=== PATIENT | male | born 1985 | race Caucasian/White ===

== ENCOUNTER → 2022-09-28 07:23 | Outpatient (BNVA) | payer OTHER, SELFPAY | PROVIDERS: PCP Pediatrics; Visit Provider Psychiatry & Neurology Neurology ==

== ENCOUNTER → 2022-10-26 14:48 | Outpatient (REF) | payer OTHER, SELFPAY | LOC: HO.SL 14:48 | PROVIDERS: PCP Pediatrics; Visit Provider Psychiatry & Neurology Neurology | DX: G47.10 Hypersomnia, unspecified (principal); G47.00 Insomnia, unspecified; R06.83 Snoring | CPT/HCPCS: 95806 ==

== ENCOUNTER 2022-11-23 08:43 | Outpatient (REF) | payer OTHER, SELFPAY ==
--- NOTE | 2022-11-23 08:45 | EMG_ITS ---
Bilateral tibial and peroneal motor studies were performed. Bilateral superficial peroneal and sural sensory studies were performed. Tibial H reflexes were obtained and paraspinal muscles were tested with a needle. 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 MD HAYDEE Fuller/MODL / [id number]
== END 2022-11-23 08:44 | disposition home or self-care (01) ==
LOC: HO.NEURO 08:43
PROVIDERS: PCP Pediatrics; Visit Provider Psychiatry & Neurology Neurology
DX: R53.1 Weakness (principal); R20.2 Paresthesia of skin
CPT/HCPCS: 95886; 95911

== ENCOUNTER 2022-12-11 16:10 | Outpatient (REF) | payer OTHER, SELFPAY ==
[2022-12-11 16:36] LABS: MANUAL DIFF FLAG NO
[2022-12-11 16:40] LABS: Basophils Absolute Auto 0.1 X10*3/uL (0.0-0.2); Basophils Percent Auto 0.5 % (0-2); Eosinophils Absolute Auto 0.1 X10*3/uL (0.0-0.4); Eosinophils Percent Auto 0.9 % (0-4); Hemoglobin 15.3 g/dl (14.0-18.0); Imm Gran Abs Auto 0.09 X10*3/uL (0.00-0.03); Imm Gran Pct Auto 0.9 % (0.0-0.4); Lymphocytes Absolute Auto 2.7 X10*3/uL (1.2-4.9); Lymphocytes Percent Auto 27.5 % (20-40); Mean Corpuscular HGB Conc 34.8 g/dl (31.0-36.0); Mean Corpuscular Hemoglobin 30.5 pg (27.0-33.0); Mean Corpuscular Volume 87.8 fL (80.0-98.0); Mean Platelet Volume 10.6 fL (9.4-12.4); Monocytes Absolute Auto 0.7 X10*3/uL (0.1-1.2); Monocytes Percent Auto 7.7 % (2-11); Neutrophils Percent Auto 62.5 % (45-73); Platelet Count 241 X10*3/uL (160-400); Red Blood Count 5.01 X10*6/uL (4.60-5.80); Red Cell Distribution Width 12.4 % (11.0-16.0); White Blood Count 9.6 X10*3/uL (4.8-10.8)
[2022-12-11 17:02] LABS: Alanine Aminotransferase 53 U/L (0-40); Albumin Level 5.2 g/dL (3.5-5.0); Alkaline Phosphatase 60 U/L (39-117); Anion Gap 14 (12-20); Aspartate Amino Transferase 24 U/L (5-37); Bilirubin Total 0.6 mg/dL (0.0-1.0); Blood Urea Nitrogen 8 mg/dL (9-16); Calcium 10.2 mg/dL (8.4-10.2); Carbon Dioxide 26 mmol/L (22-29); Chloride 101 mmol/L (96-108); Estimated Glomerular Filt Rate > 60; Glucose Random 87 mg/dL (60-115); Sodium 137 mmol/L (135-145)
[2022-12-11 17:15] LABS: Syphilis Screen Nonreactive (Nonreactive)
[2022-12-11 17:16] LABS: TSH reflex Free T4 2.77 uIU/mL (0.32-4.0)
[2022-12-11 17:26] LABS: Erythrocyte Sedimentation Rate 2 MM/HR (0-15)
[2022-12-11 17:30] LABS: Folate 12.9 ng/mL (> or = 4.0); Vitamin B12 473 pg/mL (200-900)
[2022-12-13 09:53] LABS: Lyme Abs Screen <0.90 index
[2022-12-14 18:44] LABS: Homocysteine 10.5 umol/L (<11.4)
[2022-12-16 17:18] LABS: Methylmalonic Acid 99 nmol/L (87-318)
[2022-12-18 12:53] LABS: Vitamin B6 99.2 ng/mL (2.1-21.7)
== END 2022-12-11 16:11 | disposition home or self-care (01) ==
LOC: HO.LAB 16:10
PROVIDERS: PCP Pediatrics; Visit Provider Psychiatry & Neurology Neurology
DX: G62.9 Polyneuropathy, unspecified (principal)
CPT/HCPCS: 80053; 82570; 82607; 82746; 83090; 83921; 84156; 84165; 84166; 84207; 84443; 85025; 85652; 86617; 86618; 86780

== ENCOUNTER 2022-12-26 09:29 | Day surgery (SDC) | payer OTHER, MEDICAID, SELFPAY ==
--- NOTE | ~2022-12-26 | FL_ITS ---
EXAMINATION: XR LUMBAR PUNCTURE CLINICAL INFORMATION: Polyneuropathy COMPARISON: None TECHNIQUE: Under fluoroscopic guidance to the skin was prepped and draped in usual fashion 1% Xylocaine was used for local anesthetic. A 25-gauge needle was then placed via a posterior approach into the Thecal sac at the level of the L3-L4 disc space. FINDINGS: A total of 8 mL of clear CSF was drained and sent for analysis. FLUOROSCOPY TIME: 1 minute FL/FL guided lumbar puncture LP IMPRESSION: Successful lumbar puncture at the L3-L4 level with 8 mL of clear CSF drained and sent for analysis. The Patient tolerated procedure well.
[2022-12-26 10:01] VITALS: BMI 33.9
[2022-12-26 10:23] LABS: MANUAL DIFF FLAG NO
[2022-12-26 10:25] LABS: Basophils Absolute Auto 0.1 X10*3/uL (0.0-0.2); Basophils Percent Auto 0.6 % (0-2); Eosinophils Absolute Auto 0.1 X10*3/uL (0.0-0.4); Eosinophils Percent Auto 1.2 % (0-4); Hematocrit 42.1 % (42.0-52.0); Hemoglobin 14.6 g/dl (14.0-18.0); Imm Gran Abs Auto 0.07 X10*3/uL (0.00-0.03); Imm Gran Pct Auto 0.8 % (0.0-0.4); Lymphocytes Absolute Auto 2.7 X10*3/uL (1.2-4.9); Lymphocytes Percent Auto 31.8 % (20-40); Mean Corpuscular HGB Conc 34.7 g/dl (31.0-36.0); Mean Corpuscular Hemoglobin 30.8 pg (27.0-33.0); Mean Corpuscular Volume 88.8 fL (80.0-98.0); Mean Platelet Volume 11.2 fL (9.4-12.4); Monocytes Absolute Auto 0.6 X10*3/uL (0.1-1.2); Monocytes Percent Auto 7.3 % (2-11); Neutrophils Percent Auto 58.3 % (45-73); Platelet Count 231 X10*3/uL (160-400); Red Blood Count 4.74 X10*6/uL (4.60-5.80); Red Cell Distribution Width 12.1 % (11.0-16.0); White Blood Count 8.5 X10*3/uL (4.8-10.8)
[2022-12-26 10:33] LABS: Anion Gap 15 (12-20); Carbon Dioxide 22 mmol/L (22-29); Chloride 107 mmol/L (96-108); Potassium 4.4 mmol/L (3.3-5.1); Sodium 140 mmol/L (135-145)
[2022-12-26 10:42] LABS: Prothrombin Time 11.9 SEC (11.1-13.3)
[2022-12-26 10:45] LABS: Partial Thromboplastin Time 35.7 SEC (26.0-36.4)
[2022-12-26 13:39] VITALS: BP 117/78; PULSE 64; RESP 16; TEMP 36.8; O2SAT 98
[2022-12-26 14:19] VITALS: BP 118/77; PULSE 63; RESP 16; O2SAT 98
[2022-12-26 14:28] LABS: CSF Tube # 1
[2022-12-26 14:31] LABS: CSF Appearance Hazy
[2022-12-26 14:43] LABS: Glucose CSF 59 mg/dL
[2022-12-26 14:48] VITALS: BP 114/68; PULSE 66; RESP 16; O2SAT 99
[2022-12-26 15:26] VITALS: BP 117/71; PULSE 67; RESP 16
[2022-12-26 15:50] VITALS: BP 115/77; PULSE 68; RESP 16; O2SAT 98
[2022-12-26 16:08] VITALS: BP 114/81; PULSE 74; RESP 16; TEMP 36.5; O2SAT 95
[2022-12-26 16:08] LABS: Appearance CSF CLEAR; CSF Tube # 4; Color CSF COLORLESS
[2022-12-26 16:19] LABS: Lymphocytes CSF 3 %
[2022-12-26 16:21] LABS: White Blood Cell CSF 2 MM*3
[2022-12-26 16:22] LABS: Red Blood Cell CSF 19 MM*3
[2023-01-18 11:58] LABS: Total Protein, CSF 87 (H)
== END 2022-12-26 16:19 | disposition home or self-care (01) ==
PROVIDERS: Radiology Diagnostic Radiology; PCP Pediatrics; Visit Provider Psychiatry & Neurology Neurology
PROC: 009U3ZZ Drainage of Spinal Canal, Percutaneous Approach (ICD-10-PCS; CPT 62270; principal; 2022-12-26 11:00)
DX: G62.9 Polyneuropathy, unspecified (principal); M79.606 Pain in leg, unspecified; M25.579 Pain in unspecified ankle and joints of unspecified foot; M62.81 Muscle weakness (generalized); R20.2 Paresthesia of skin; R26.2 Difficulty in walking, not elsewhere classified; I10 Essential (primary) hypertension; R06.83 Snoring; G47.10 Hypersomnia, unspecified; G47.00 Insomnia, unspecified; Z79.899 Other long term (current) drug therapy; Z88.8 Allergy status to other drugs, medicaments and biological substances
CPT/HCPCS: 36415; 62328; 80051; 82945; 84157; 84166; 85025; 85610; 85730; 89051

== ENCOUNTER → 2022-12-26 10:53 | Outpatient (BNV) | payer OTHER, SELFPAY | PROVIDERS: PCP Pediatrics; Visit Provider Radiology Vascular & Interventional Radiology | DX: G62.9 Polyneuropathy, unspecified (principal) | CPT/HCPCS: 62328 ==

== ENCOUNTER 2023-01-08 07:57 | Outpatient (AMB) | payer OTHER, SELFPAY ==
--- NOTE | 2023-01-08 08:05 | MHC.OFFVIS ---
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 His symptoms started about 5 months ago in [place] , followed by Fingers , then weakness, he has trouble climbing stairs, running jumping. Prior to all this he had pain after work - in his feet and legs. No back or neck pain. He denies any preceding Gi or respiratory infection. The tingling is present throughout the day fluctuates in intensity, more in the morning. He saw his PCP and found to have high BP started on amlodipine. He had right facial weakness, difficulty whistling , spitting etc, The medication was switched to lisinopril and his face weakness resolved. He lost 40 lbs intentionally to help with his HTN control [facility] Medical History (Updated 01/08/23 @ 08:49 by Tamiko Tavarez MD) Chronic inflammatory demyelinating polyneuropathy History of rectal abscess Hypersomnia Insomnia Neuropathy Snoring Tingling in extremities Weakness Family History Maternal Grandfather Heart disease Father Afib Mother Thyroid disease Family/Other Cancer Social History Alcohol intake: never Patient Tobacco Use Status: Never used Tobacco Physical Exam Vital Signs: Last Vital Signs Pulse 81 01/08/23 08:08 BP 120/78 01/08/23 08:08 Pulse Ox 98 01/08/23 08:08 Oxygen Delivery Method Room Air 01/08/23 08:08 Const Orientation/consciousness: patient oriented x3 Eyes Pupils: Equal, round and reactive pupils present Neuro General: patient oriented x3, gait normal, tone normal, moves all extremities and no focal motor deficits Cranial nerves: Yes Facial sensation intact/muscles of mastication intact, Yes Equal, round and reactive pupils present, Yes Bilaterally intact EOM present, Yes Nystagmus not present, Yes Normal facial strength present, Yes Midline tongue present and Yes Symmetric palate elevation present Cognition (Neuro): normal cognition Gait exam (Neuro): Normal gait present Motor exam (neuro): 5/5 motor strength present throughout and Normal motor muscle tone present throughout Deep tendon reflexes (DTR's): Right triceps reflex intensity grade: 1+, Left triceps reflex intensity grade: 1+, Rt Biceps (C5, C6): 1+, Left biceps reflex intensity grade: 1+, Right brachioradialis reflex intensity grade: 0, Left brachioradialis reflex intensity grade: 0, Right patellar reflex intensity grade: 1+, Left patellar reflex intensity grade: 1+, Right ankle reflex intensity grade: 0 and Left ankle reflex intensity grade: 0 Coordination: [id number] test normal, [id number] test normal and does not sway with eyes open Assessment & Plan Assessment & Plan (1) Chronic inflammatory demyelinating polyneuropathy: Comment: distal and proximal weakness, sensory symptoms, EMG-sensorimotor demeylinating , axonal polyneuropathy CSF- albuminocytologic dissociation Code(s): G61.81 - Chronic inflammatory demyelinating polyneuritis Plan I will start him on IVIG - loading dose of 2g/kg over 3 days( 116kg X2 = 232 gms) and maintenance dose of 1gm/kg q 3 weeks Side effects discussed and he will be scheduled at [facility] for IVIG I will follow up in 4 weeks . Orders: Orders Vitamin B12 and Folate 12/11/22 G62.9 - Polyneuropathy, unspecified Comprehensive Met. Panel 12/11/22 G62.9 - Polyneuropathy, unspecified TSH reflex Free T4 12/11/22 G62.9 - Polyneuropathy, unspecified Vitamin B6 12/11/22 G62.9 - Polyneuropathy, unspecified Complete Blood Count Auto Diff 12/11/22 G62.9 - Polyneuropathy, unspecified Erythrocyte Sedimentation Rate 12/11/22 G62.9 - Polyneuropathy, unspecified Homocysteine 12/11/22 G62.9 - Polyneuropathy, unspecified Methylmalonic Acid 12/11/22 G62.9 - Polyneuropathy, unspecified Other Ref Test - Misc 12/11/22 G62.9 - Polyneuropathy, unspecified Lyme IgG/IgM w/reflex to WB 12/11/22 G62.9 - Polyneuropathy, unspecified Syphilis Screen 12/11/22 G62.9 - Polyneuropathy, unspecified FL guided lumbar puncture LP 12/26/22 G62.9 - Polyneuropathy, unspecified CSF Cell Count w Diff 12/11/22 G62.9 - Polyneuropathy, unspecified CSF Glucose 12/11/22 G62.9 - Polyneuropathy, unspecified CSF Total Protein 12/11/22 G62.9 - Polyneuropathy, unspecified Protein Electrophoresis, CSF 12/11/22 G62.9 - Polyneuropathy, unspecified AMB Hemoglobin A1c 12/11/22 G62.9 - Polyneuropathy, unspecified, Z13.9 - Encounter for screening, unspecified Coding Level of Care Code Est Pt Level 4 (94544) Diagnoses Chronic inflammatory demyelinating polyneuropathy G61.81
[2023-01-08 08:08] VITALS: BP 120/78; PULSE 81; O2SAT 98
== END 2023-01-08 08:40 | disposition home or self-care (01) ==
PROVIDERS: Visit Provider Psychiatry & Neurology Neurology
DX: G61.81 Chronic inflammatory demyelinating polyneuritis (principal)
CPT/HCPCS: 99214

== ENCOUNTER → 2023-01-08 07:57 | Outpatient (BNVA) | payer OTHER, SELFPAY | PROVIDERS: Visit Provider Psychiatry & Neurology Neurology | DX: R06.83 Snoring (principal); G47.10 Hypersomnia, unspecified; G47.00 Insomnia, unspecified; R53.1 Weakness; R20.2 Paresthesia of skin; G62.9 Polyneuropathy, unspecified ==

== ENCOUNTER 2023-01-31 13:24 | Outpatient (REF) | payer OTHER, SELFPAY | END 2023-01-31 13:25 | disposition home or self-care (01) | LOC: HO.MDS 13:24 | PROVIDERS: Visit Provider Psychiatry & Neurology Neurology | DX: G61.81 Chronic inflammatory demyelinating polyneuritis (principal) | CPT/HCPCS: 96365; J2930 ==

== ENCOUNTER 2023-02-01 13:30 | Outpatient (REF) | payer OTHER, SELFPAY | END 2023-02-01 13:31 | disposition home or self-care (01) | LOC: HO.MDS 13:30 | PROVIDERS: Visit Provider Psychiatry & Neurology Neurology | DX: G61.81 Chronic inflammatory demyelinating polyneuritis (principal) | CPT/HCPCS: 96365; J2930 ==

== ENCOUNTER 2023-02-02 13:36 | Outpatient (REF) | payer OTHER, SELFPAY | END 2023-02-02 13:37 | disposition home or self-care (01) | LOC: HO.MDS 13:36 | PROVIDERS: Visit Provider Psychiatry & Neurology Neurology | DX: G61.81 Chronic inflammatory demyelinating polyneuritis (principal) | CPT/HCPCS: 96365; J2930 ==

== ENCOUNTER 2023-02-12 08:02 | Outpatient (AMB) | payer OTHER, SELFPAY ==
--- NOTE | 2023-02-12 08:22 | MHC.OFFVIS ---
Intake Vital Signs 02/12/23 08:24 Weight 261 lb 4 oz BP 110/76 Blood Pressure Location Lt brachial Position Sitting Pulse 73 Pulse Source Pulse Oximeter Pulse Oximetry (%) 98 Oxygen Delivery Method Room Air Intake Visit Reasons: 1m fu Neuropathy/muscular weakness-confirmed Intake Note: Muscular weakness, states numbness in hands is getting worse Ob Scrub Tech Required: No Allergies amlodipine Adverse Reaction (Intermediate, Verified 02/12/23 08:23) tiredness and numbness right side of face Medication List - Last Reconciled 02/12/23 by Tamiko Tavarez MD lisinopril 10 mg PO DAILY methylprednisolone sodium succ 1,000 mg IV DAILY 3 days HPI HPI Comments History of Present Illness Details 37y/o right handed male comes for follow up of tingling in distal LE,UE, weakness in LE.His EMG was c/w moderately severe sensory motor demyelinating and axonal neuropathy He was started on IV solumedrol 1000mg for 3 days but patient had multiple side effects.He reports tingling , nose bleeds, headaches aches and increase in BP with palpitations. 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 His CSF - showed albuminocytologic dissociation. His symptoms started about 8 months ago in [place] , followed by Fingers , then weakness, he has trouble climbing stairs, running jumping. Prior to all this he had pain after work - in his feet and legs. No back or neck pain. He denies any preceding Gi or respiratory infection. The tingling is present throughout the day fluctuates in intensity, more in the morning. He saw his PCP and found to have high BP started on amlodipine. He had right facial weakness, difficulty whistling , spitting etc, The medication was switched to lisinopril and his face weakness resolved. He lost 40 lbs intentionally to help with his HTN control [facility] Medical History Chronic inflammatory demyelinating polyneuropathy History of rectal abscess Neuropathy Insomnia Hypersomnia Snoring Tingling in extremities Weakness Family History Maternal Grandfather Heart disease Father Afib Mother Thyroid disease Family/Other Cancer Social History Alcohol intake: never Patient Tobacco Use Status: Never used Tobacco Substance Use Type: Marijuana Physical Exam Vital Signs: Last Vital Signs Pulse 73 02/12/23 08:24 BP 110/76 02/12/23 08:24 Pulse Ox 98 02/12/23 08:24 Oxygen Delivery Method Room Air 02/12/23 08:24 Const Orientation/consciousness: patient oriented x3 Eyes Pupils: Equal, round and reactive pupils present Neuro General: patient oriented x3, gait normal, tone normal, moves all extremities and no focal motor deficits Cranial nerves: Yes Facial sensation intact/muscles of mastication intact, Yes Equal, round and reactive pupils present, Yes Bilaterally intact EOM present, Yes Nystagmus not present, Yes Normal facial strength present, Yes Midline tongue present and Yes Symmetric palate elevation present Cognition (Neuro): normal cognition Gait exam (Neuro): Normal gait present Motor exam (neuro): 5/5 motor strength present throughout and Normal motor muscle tone present throughout Deep tendon reflexes (DTR's): Right triceps reflex intensity grade: 1+, Left triceps reflex intensity grade: 1+, Rt Biceps (C5, C6): 1+, Left biceps reflex intensity grade: 1+, Right brachioradialis reflex intensity grade: 0, Left brachioradialis reflex intensity grade: 0, Right patellar reflex intensity grade: 1+, Left patellar reflex intensity grade: 1+, Right ankle reflex intensity grade: 0 and Left ankle reflex intensity grade: 0 Coordination: [id number]-ih-[id number] test normal, huel-wj-tvkv test normal and does not sway with eyes open Assessment & Plan Assessment & Plan (1) Chronic inflammatory demyelinating polyneuropathy: Comment: distal and proximal weakness, sensory symptoms, EMG-sensorimotor demeylinating , axonal polyneuropathy CSF- albuminocytologic dissociation Code(s): G61.81 - Chronic inflammatory demyelinating polyneuritis Plan I will start him on IVIG - loading dose of 2g/kg over 3 days( 116kg X2 = 232 gms) and maintenance dose of 1gm/kg q 3 weeks Side effects discussed and he will be scheduled at [facility] for IVIG HE WAS UNABLE TO TOLERATE SOLUMEDROL INFUSIONS - multiple side effects I will follow up in 4 weeks . Orders: Referrals Neurology Referral G6.81 - Chronic inflammatory demyelinating polyneuritis Coding Level of Care Code Est Pt Level 4 (75931) Diagnoses Chronic inflammatory demyelinating polyneuropathy G61.81
[2023-02-12 08:24] VITALS: BP 110/76; PULSE 73; O2SAT 98
== END 2023-02-12 09:00 | disposition home or self-care (01) ==
PROVIDERS: PCP Pediatrics; Visit Provider Psychiatry & Neurology Neurology
DX: G61.81 Chronic inflammatory demyelinating polyneuritis (principal)
CPT/HCPCS: 99214

== ENCOUNTER → 2023-02-12 08:02 | Outpatient (BNVA) | payer OTHER, SELFPAY | PROVIDERS: PCP Pediatrics; Visit Provider Psychiatry & Neurology Neurology | DX: R06.83 Snoring (principal); G47.10 Hypersomnia, unspecified; G47.00 Insomnia, unspecified; R53.1 Weakness; R20.2 Paresthesia of skin; G62.9 Polyneuropathy, unspecified ==

== ENCOUNTER 2023-02-15 15:51 | Outpatient (REF) | payer OTHER, SELFPAY ==
[2023-02-15 16:00] LABS: MANUAL DIFF FLAG NO
[2023-02-15 16:14] LABS: Basophils Absolute Auto 0.1 X10*3/uL (0.0-0.2); Basophils Percent Auto 0.6 % (0-2); Eosinophils Absolute Auto 0.2 X10*3/uL (0.0-0.4); Eosinophils Percent Auto 1.8 % (0-4); Hematocrit 41.4 % (42.0-52.0); Hemoglobin 14.6 g/dl (14.0-18.0); Lymphocytes Absolute Auto 2.1 X10*3/uL (1.2-4.9); Lymphocytes Percent Auto 21.2 % (20-40); Mean Corpuscular HGB Conc 35.3 g/dl (31.0-36.0); Mean Corpuscular Volume 87.9 fL (80.0-98.0); Mean Platelet Volume 10.6 fL (9.4-12.4); Monocytes Absolute Auto 0.8 X10*3/uL (0.1-1.2); Monocytes Percent Auto 7.8 % (2-11); Neutrophils Absolute Auto 6.8 x10*3/uL (2.0-8.3); Neutrophils Percent Auto 67.6 % (45-73); Platelet Count 205 X10*3/uL (160-400); Red Blood Count 4.71 X10*6/uL (4.60-5.80); Red Cell Distribution Width 12.3 % (11.0-16.0)
[2023-02-15 17:02] LABS: Alanine Aminotransferase 43 U/L (0-40); Albumin Level 4.7 g/dL (3.5-5.0); Alkaline Phosphatase 55 U/L (39-117); Anion Gap 12 (12-20); Aspartate Amino Transferase 19 U/L (5-37); Bilirubin Total 0.7 mg/dL (0.0-1.0); Blood Urea Nitrogen 11 mg/dL (9-16); Calcium 9.8 mg/dL (8.4-10.2); Carbon Dioxide 25 mmol/L (22-29); Chloride 106 mmol/L (96-108); Estimated Glomerular Filt Rate > 60; Glucose Random 89 mg/dL (60-115); Potassium 3.8 mmol/L (3.3-5.1); Sodium 139 mmol/L (135-145); Total Protein 7.4 g/dL (6.5-8.0)
== END 2023-02-15 15:52 | disposition home or self-care (01) ==
LOC: HO.LAB 15:51
PROVIDERS: PCP Pediatrics; Visit Provider Psychiatry & Neurology Neurology
DX: G61.81 Chronic inflammatory demyelinating polyneuritis (principal)
CPT/HCPCS: 36415; 80053; 85025

== ENCOUNTER 2023-03-07 08:22 | Outpatient (REF) | payer OTHER, SELFPAY | END 2023-03-07 08:23 | disposition home or self-care (01) | LOC: HO.MDS 08:22 | PROVIDERS: Visit Provider Psychiatry & Neurology Neurology | DX: G61.81 Chronic inflammatory demyelinating polyneuritis (principal) | CPT/HCPCS: 96365; 96366; J1569 ==

== ENCOUNTER 2023-03-08 08:26 | Outpatient (REF) | payer OTHER, SELFPAY | END 2023-03-08 08:27 | disposition home or self-care (01) | LOC: HO.MDS 08:26 | PROVIDERS: Visit Provider Psychiatry & Neurology Neurology | DX: G61.81 Chronic inflammatory demyelinating polyneuritis (principal) | CPT/HCPCS: 96365; 96366; J1569 ==

== ENCOUNTER 2023-03-09 08:34 | Outpatient (REF) | payer OTHER, SELFPAY | END 2023-03-09 08:35 | disposition home or self-care (01) | LOC: HO.MDS 08:34 | PROVIDERS: Visit Provider Psychiatry & Neurology Neurology | DX: G61.81 Chronic inflammatory demyelinating polyneuritis (principal) | CPT/HCPCS: 96365; 96366; 96375; J1569; J1885; J2765 ==

== ENCOUNTER 2023-04-06 08:50 | Outpatient (REF) | payer OTHER, SELFPAY | END 2023-04-06 08:51 | disposition home or self-care (01) | LOC: HO.MDS 08:50 | PROVIDERS: Visit Provider Psychiatry & Neurology Neurology | DX: G61.81 Chronic inflammatory demyelinating polyneuritis (principal) | CPT/HCPCS: 96365; 96366; J1569 ==

== ENCOUNTER 2023-04-23 07:23 | Outpatient (AMB) | payer OTHER, SELFPAY ==
--- NOTE | 2023-04-23 07:31 | A.OFFVIS_ITS ---
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 He noticed mild improvement since he started on IVIG Previous history-.His EMG was c/w moderately severe sensory motor demyelinating and axonal neuropathy He was started on IV solumedrol 1000mg for 3 days but patient had multiple side effects.He reports tingling , nose bleeds, headaches aches and increase in BP with palpitations. 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 His CSF - showed albuminocytologic dissociation. His symptoms started about 8 months ago in [place] , followed by Fingers , then weakness, he has trouble climbing stairs, running jumping. Prior to all this he had pain after work - in his feet and legs. No back or neck pain. He denies any preceding Gi or respiratory infection. The tingling is present throughout the day fluctuates in intensity, more in the morning. He saw his PCP and found to have high BP started on amlodipine. He had right facial weakness, difficulty whistling , spitting etc, The medication was switched to lisinopril and his face weakness resolved. He lost 40 lbs intentionally to help with his HTN control [facility] Medical History Perianal abscess Chronic inflammatory demyelinating polyneuropathy History of rectal abscess Neuropathy Insomnia Hypersomnia Snoring Tingling in extremities Weakness Family History Maternal Grandfather Heart disease Father Afib Mother Thyroid disease Family/Other Cancer Alcohol intake: never Patient Tobacco Use Status: Never used Tobacco Substance Use Type: Marijuana Physical Exam Vital Signs: Last Vital Signs Pulse 78 04/23/23 07:34 BP 128/80 11/27/23 07:34 Pulse Ox 97 04/23/23 07:34 Oxygen Delivery Method Room Air 04/23/23 07:34 Const Orientation/consciousness: patient oriented x3 Eyes Pupils: Equal, round and reactive pupils present Neuro General: patient oriented x3, gait normal, tone normal, moves all extremities and no focal motor deficits Cranial nerves: Yes Facial sensation intact/muscles of mastication intact, Yes Equal, round and reactive pupils present, Yes Bilaterally intact EOM present, Yes Nystagmus not present, Yes Normal facial strength present, Yes Midline tongue present and Yes Symmetric palate elevation present Cognition (Neuro): normal cognition Gait exam (Neuro): Normal gait present Motor exam (neuro): 5/5 motor strength present throughout and Normal motor muscle tone present throughout Deep tendon reflexes (DTR's): Right triceps reflex intensity grade: 1+, Left triceps reflex intensity grade: 1+, Rt Biceps (C5, C6): 1+, Left biceps reflex intensity grade: 1+, Right brachioradialis reflex intensity grade: 1+, Left brachioradialis reflex intensity grade: 1+, Right patellar reflex intensity grade: 2+, Left patellar reflex intensity grade: 2+, Right ankle reflex intensity grade: 1+ and Left ankle reflex intensity grade: 1+ Coordination: [id number] test normal and cmby-ju-liyt test normal Assessment & Plan Assessment & Plan (1) Chronic inflammatory demyelinating polyneuropathy: Comment: distal and proximal weakness, sensory symptoms, EMG-sensorimotor demeylinating , axonal polyneuropathy CSF- albuminocytologic dissociation Code(s): - Chronic inflammatory demyelinating polyneuritis Plan IVIG - loading dose of 2g/kg over 3 days( 116kg X2 = 232 gms) and maintenance dose of 1gm/kg q 3 weeks HE WAS UNABLE TO TOLERATE SOLUMEDROL INFUSIONS - multiple side effects He is doing well on IVIG except for headaches during infusion -responded to medications. Orders: Orders NE electromyogram (EMG) 2 Months - Chronic inflammatory demyelinating polyneuritis Coding Level of Care Code Est Pt Level 4 (07354) Diagnoses Chronic inflammatory demyelinating polyneuropathy
[2023-04-23 07:34] VITALS: BP 128/80; PULSE 78; O2SAT 97
== END 2023-04-23 08:11 | disposition home or self-care (01) ==
PROVIDERS: PCP Pediatrics; Visit Provider Psychiatry & Neurology Neurology
DX: G61.81 Chronic inflammatory demyelinating polyneuritis (principal)
CPT/HCPCS: 99214

== ENCOUNTER → 2023-04-23 07:23 | Outpatient (BNVA) | payer OTHER, SELFPAY | PROVIDERS: PCP Pediatrics; Visit Provider Psychiatry & Neurology Neurology ==

== ENCOUNTER 2023-05-04 09:07 | Outpatient (REF) | payer OTHER, SELFPAY | END 2023-05-04 09:08 | disposition home or self-care (01) | LOC: HO.MDS 09:07 | PROVIDERS: PCP Pediatrics; Visit Provider Psychiatry & Neurology Neurology | DX: G61.81 Chronic inflammatory demyelinating polyneuritis (principal) | CPT/HCPCS: 96365; 96366; J1569 ==

== ENCOUNTER 2023-06-01 07:36 | Outpatient (REF) | payer OTHER, SELFPAY | END 2023-06-01 07:37 | disposition home or self-care (01) | LOC: HO.MDS 07:36 | PROVIDERS: Visit Provider Student in an Organized Health Care Education/Training Program | DX: G61.81 Chronic inflammatory demyelinating polyneuritis (principal) | CPT/HCPCS: 96365; 96366; J1569 ==

== ENCOUNTER 2023-06-13 13:07 | Outpatient (REF) | payer OTHER, SELFPAY ==
--- NOTE | 2023-06-13 13:10 | EMG_ITS ---
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 Denies weakness on upper extremities. EMG done by Dr. Nuñez 11/23/2022, reviewed, will be used for comparison. Reason for referral: Evaluate for CIDP Referred by: Dr. Tavarez Procedure done: Bilateral lower extremity NCS/EMG Precautions and/or limitations: None The limb temperature was monitored continuously and remained between 32-36 degrees C during the performance of the NCS. Ulnar motor NCS was performed with moderate elbow flexion between 70-90 degrees, with across-elbow distance of 10 cm. Nerve Conduction Studies Anti Sensory Summary Table ?Stim Site NR Onset (ms) Norm Onset (ms) Peak (ms) Norm Peak (ms) O-P Amp (?V) Norm O-P Amp Site1 Site2 Delta-0 (ms) Dist (cm) Karri (m/s) Norm Karri (m/s) Left Sural Anti Sensory (Lat Mall) Calf ? 3.0 3.7 <4.0 5.1 >5.0 Calf Lat Mall 3.0 14.0 47 Right Sural Anti Sensory (Lat Mall) Calf ? 2.7 3.7 <4.0 5.9 >5.0 Calf Lat Mall 2.7 14.0 52 Motor Summary Table ?Stim Site NR Onset (ms) Norm Onset (ms) O-P Amp (mV) Norm O-P Amp iAmp (mV) Amp (1st) (%) Site1 Site2 Delta-0 (ms) Dist (cm) Karri (m/s) Norm Karri (m/s) Left Peroneal Motor (Ext Dig Brev) Ankle ? 5.5 <4.0 3.8 >2.5 4.2 100.0 Ankle Ext Dig Brev 5.5 0.0 B Fib ? 13.0 3.7 3.9 97.4 B Fib Ankle 7.5 33.0 44 >40 Poplt ? 13.8 3.8 3.9 100.0 Poplt B Fib 0.8 5.0 62 >40 Right Peroneal Motor (Ext Dig Brev) Ankle ? 6.3 <4.0 3.9 >2.5 4.3 100.0 Ankle Ext Dig Brev 6.3 0.0 B Fib ? 13.1 3.7 3.9 94.9 B Fib Ankle 6.8 33.0 49 >40 Poplt ? 14.4 3.7 4.0 94.9 Poplt B Fib 1.3 6.0 46 >40 Left Tibial Motor (Abd Dexter Brev) Ankle ? 4.6 <5 3.8 >2.5 5.9 100.0 Ankle Abd Dexter Brev 4.6 0.0 Knee ? 13.3 2.2 3.7 57.9 Knee Ankle 8.7 41.5 48 >40 Right Tibial Motor (Abd Dexter Brev) Ankle ? 5.1 <5 4.6 >2.5 5.9 100.0 Ankle Abd Dexter Brev 5.1 0.0 Knee ? 13.5 0.9 1.4 19.6 Knee Ankle 8.4 43.0 51 >40 H Reflex Studies ?NR H-Lat (ms) L-R H-Lat (ms) L-R Lat Norm Left Tibial (Gastroc) ? 16.32 0.00 <2.0 Right Tibial (Gastroc) ? 16.32 0.00 <2.0 EMG ?Side Muscle Nerve Root Ins Act Fibs Psw Amp Dur Poly Recrt Int Pat Comment Right AbdHallucis MedPlantar S1-2 Nml Nml Nml Nml Nml 0 Nml Complete Right AntTibialis Dp Br Peron L4-5 Nml Nml Nml Nml Nml 0 Nml Complete Right MedGastroc Tibial S1-2 Nml Nml Nml Nml Nml 0 Nml Complete Right VastusMed Femoral L2-4 Nml Nml Nml Nml Nml 0 Nml Complete Left AbdHallucis MedPlantar S1-2 Nml Nml Nml Nml Nml 0 Nml Complete Left AntTibialis Dp Br Peron L4-5 Nml Nml Nml Nml Nml 0 Nml Complete Left MedGastroc Tibial S1-2 Nml Nml Nml Nml Nml 0 Nml Complete Left VastusMed Femoral L2-4 Nml Nml Nml Nml Nml 0 Nml Complete Paraspinal EMG ?Side Muscle Nerve Root Ins Act Fibs Psw Comment Right Lumbar Upper Rami Nml Nml Nml Right Lumbar Mid Rami Nml Nml Nml Right Lumbar Lower Rami Nml Nml Nml Left Lumbar Upper Rami Nml Nml Nml Left Lumbar Mid Rami Nml Nml Nml Left Lumbar Lower Rami Nml Nml Nml FINDINGS: Bilateral peroneal nerves showed prolonged distal latency, normal amplitude and normal conduction velocity. Right tibial nerve showed prolonged distal latency, drop in amplitude proximally and normal conduction velocity. Left tibial showed normal distal latency, normal amplitude and normal conduction velocity. Bilateral sural nerves showed normal latencies and amplitudes. Bilateral tibial H reflexes were symmetric, within normal latencies. Concentric needle EMG was performed in selected muscles of the bilateral lower extremity and lumbar paraspinals. Study did not reveal signs of electric abnormalities as shown in the table below. IMPRESSION: In comparison to study done last year, there is overall improvement. The most evidence of demyelination was seen on right tibial nerve (drop in amplitude in non entrapment site). Peroneal nerves showed mildly prolonged distal latency without signs of conduction block. Left tibial and bilateral sural nerves are now normal. H reflexes appeared similar to last year, and I believe they show normal and symmetric latencies. Thank you for your kind referral. Suly Wang MD, PRIYA Board Certified, [place] [employer] and [employer] (ABPMR) Board Certified, [place] [employer] Electro[employer] (ABEM) CODIN [id number] x 2 MTDD
== END 2023-06-13 13:08 | disposition home or self-care (01) ==
LOC: HO.NEURO 13:07
PROVIDERS: PCP Pediatrics; Visit Provider Psychiatry & Neurology Neurology
DX: G61.81 Chronic inflammatory demyelinating polyneuritis (principal)
CPT/HCPCS: 95886; 95910

== ENCOUNTER → 2023-06-13 13:10 | Outpatient (BNV) | payer OTHER, SELFPAY | PROVIDERS: PCP Pediatrics; Visit Provider Physical Medicine & Rehabilitation | DX: R53.1 Weakness (principal) | CPT/HCPCS: 95886; 95909 ==

== ENCOUNTER 2023-06-29 07:46 | Outpatient (REF) | payer OTHER, SELFPAY | END 2023-06-29 07:47 | disposition home or self-care (01) | LOC: HO.MDS 07:46 | PROVIDERS: Visit Provider Student in an Organized Health Care Education/Training Program | DX: G61.81 Chronic inflammatory demyelinating polyneuritis (principal) | CPT/HCPCS: 96365; 96366; J1569 ==

== ENCOUNTER 2023-07-27 07:25 | Outpatient (REF) | payer OTHER, SELFPAY ==
[2023-07-27] VITALS (10 sets, daily range): BP systolic 105–144; BP diastolic 66–76; PULSE 54–81; RESP 18; TEMP 36.6; BMI 36.6
[2023-07-27] MEDS: Immun Glob G(IgG)/Gly/IGA Ov50 200 ML IV ×5 (07:44→11:16)
[2023-07-27] MEDS: Acetaminophen 325 MG TABLET 650 MG PO (08:50)
== END 2023-07-27 07:26 | disposition home or self-care (01) ==
LOC: HO.MDS 07:25
PROVIDERS: Visit Provider Student in an Organized Health Care Education/Training Program
DX: G61.81 Chronic inflammatory demyelinating polyneuritis (principal)
CPT/HCPCS: 96365; 96366; J1569

== ENCOUNTER 2023-08-22 07:32 | Outpatient (AMB) | payer OTHER, SELFPAY ==
--- NOTE | 2023-08-22 07:36 | A.OFFVIS_ITS ---
Intake Vital Signs 08/22/23 07:38 Respiration 16 Pulse 84 Pulse Source Pulse Oximeter Pulse Oximetry (%) 96 Oxygen Delivery Method Room Air Intake Visit Reasons: 4 mo f/u -LVM Intake Note: Pt presents for a 4 month follow up for polyneuropathy. Histological Illustrator Required: No Allergies amlodipine Adverse Reaction (Intermediate, Verified 08/22/23 07:36) tiredness and numbness right side of face Medication List - Last Reconciled 08/22/23 by Tamiko Tavarez MD immun glob G(IgG)-gly-IgA ov50 10 % (Gammagard Liquid) 220 gm IV loading dose over 3 days followed by 100gm IV q 4 weeks intravenously; lisinopril 10 mg PO DAILY HPI HPI Comments History of Present Illness Details 37y/o right handed male comes for follow up. He noticed mild improvement since he started on IVIG. He denies any progression or worsening.EMG done 2 months ago showed improvement to study done last year, there is overall improvement. The most evidence of demyelination was seen on right tibial nerve (drop in ampli tude in non entrapment site). Peroneal nerves showed mildly prolonged distal latency without signs of conduction block. Left tibial and bilateral sural nerves are now normal. H reflexes appeared similar to last year, and I believe they show normal and symmetric latencies. Previous history-.His EMG was c/w moderately severe sensory motor demyelinating and axonal neuropathy He was started on IV solumedrol 1000mg for 3 days but patient had multiple side effects.He reports tingling , nose bleeds, headaches aches and increase in BP with palpitations. 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 His CSF - showed albuminocytologic dissociation. His symptoms started about 8 months ago in [place] , followed by Fingers , then weakness, he has trouble climbing stairs, running jumping. Prior to all this he had pain after work - in his feet and legs. No back or neck pain. He denies any preceding Gi or respiratory infection. The tingling is present throughout the day fluctuates in intensity, more in the morning. He saw his PCP and found to have high BP started on amlodipine. He had right facial weakness, difficulty whistling , spitting etc, The medication was switched to lisinopril and his face weakness resolved. He lost 40 lbs intentionally to help with his HTN control [facility] Medical History Perianal abscess Chronic inflammatory demyelinating polyneuropathy History of rectal abscess Neuropathy Insomnia Hypersomnia Snoring Tingling in extremities Weakness Family History Maternal Grandfather Heart disease Father Afib Mother Thyroid disease Family/Other Cancer Social History Alcohol intake: never Patient Tobacco Use Status: Never used Tobacco Substance Use Type: Marijuana Physical Exam Vital Signs: Last Vital Signs Pulse 84 08/22/23 07:38 Resp 16 08/22/23 07:38 Pulse Ox 96 08/22/23 07:38 Oxygen Delivery Method Room Air 08/22/23 07:38 Const Orientation/consciousness: patient oriented x3 Eyes Pupils: Equal, round and reactive pupils present Neuro General: patient oriented x3, gait normal, tone normal, moves all extremities and no focal motor deficits Cranial nerves: Yes Facial sensation intact/muscles of mastication intact, Yes Equal, round and reactive pupils present, Yes Bilaterally intact EOM present, Yes Nystagmus not present, Yes Normal facial strength present, Yes Midline tongue present and Yes Symmetric palate elevation present Cognition (Neuro): normal cognition Gait exam (Neuro): Normal gait present Motor exam (neuro): 5/5 motor strength present throughout and Normal motor muscle tone present throughout Deep tendon reflexes (DTR's): Right triceps reflex intensity grade: 2+, Left triceps reflex intensity grade: 2+, Rt Biceps (C5, C6): 2+, Left biceps reflex intensity grade: 2+, Right brachioradialis reflex intensity grade: 2+, Left brachioradialis reflex intensity grade: 2+, Right patellar reflex intensity grade: 2+, Left patellar reflex intensity grade: 2+, Right ankle reflex intensity grade: 1+ and Left ankle reflex intensity grade: 1+ Coordination: [id number]-[id number] test normal and malj-cl-royg test normal Results Reviewed Results Reviewed: EMG/NCS 05/2023 - In comparison to study done last year, there is overall improvement. The most evidence of demyelination was seen on right tibial nerve (drop in amplitude in non entrapment site). Peroneal nerves showed mildly prolonged distal latency without signs of conduction block. Left tibial and bilateral sural nerves are now normal. H reflexes appeared similar to last year, and I believe they show normal and symmetric latencies. Assessment & Plan Assessment & Plan (1) Chronic inflammatory demyelinating polyneuropathy: Comment: distal and proximal weakness, sensory symptoms, EMG-sensorimotor demeylinating , axonal polyneuropathy CSF- albuminocytologic dissociation Code(s): G61.81 - Chronic inflammatory demyelinating polyneuritis (2) Hypersomnia: Code(s): G47.10 - Hypersomnia, unspecified (3) Snoring: Code(s): R06.83 - Snoring Plan IVIG - loading dose of 2g/kg over 3 days( 116kg X2 = 232 gms) and maintenance dose of 1gm/kg q 3 weeks HE WAS UNABLE TO TOLERATE SOLUMEDROL INFUSIONS - multiple side effects He is doing well on IVIG except for headaches during infusion -responded to medications. Home sleep test Orders: Orders Vitamin B6 Today G61.81 - Chronic inflammatory demyelinating polyneuritis Coding Level of Care Code Est Pt Level 4 (46932) Diagnoses Chronic inflammatory demyelinating polyneuropathy G61.81 Hypersomnia G47.10 Snoring R06.83
[2023-08-22 07:38] VITALS: PULSE 84; RESP 16; O2SAT 96
== END 2023-08-22 08:26 | disposition home or self-care (01) ==
PROVIDERS: PCP Pediatrics; Visit Provider Psychiatry & Neurology Neurology
DX: G61.81 Chronic inflammatory demyelinating polyneuritis (principal); G47.10 Hypersomnia, unspecified; R06.83 Snoring
CPT/HCPCS: 99214

== ENCOUNTER → 2023-08-22 07:32 | Outpatient (BNVA) | payer OTHER, SELFPAY | PROVIDERS: PCP Pediatrics; Visit Provider Psychiatry & Neurology Neurology ==

== ENCOUNTER 2023-08-24 07:30 | Outpatient (REF) | payer OTHER, SELFPAY ==
[2023-08-24] VITALS (9 sets, daily range): BP systolic 108–146; BP diastolic 66–82; PULSE 61–97; RESP 20; TEMP 36.6; O2SAT 97
[2023-08-24] MEDS: Immun Glob G(IgG)/Gly/IGA Ov50 100 ML IV (07:49)
[2023-08-24] MEDS: Immun Glob G(IgG)/Gly/IGA Ov50 300 ML IV ×3 (08:30→10:20)
== END 2023-08-24 07:31 | disposition home or self-care (01) ==
LOC: HO.MDS 07:30
PROVIDERS: Visit Provider Student in an Organized Health Care Education/Training Program
DX: G61.81 Chronic inflammatory demyelinating polyneuritis (principal)
CPT/HCPCS: 96374; 96376; J1569

== ENCOUNTER 2024-02-19 07:33 | Outpatient (AMB) | payer OTHER, SELFPAY ==
--- NOTE | 2024-02-19 07:34 | A.OFFVIS_ITS ---
Vital Signs 02/19/24 07:36 Height 6 ft Weight 282 lb 4 oz BMI 38.3 BP 138/88 Blood Pressure Location Rt brachial Position Sitting Respiration 16 Pulse 88 Pulse Source Pulse Oximeter Pulse Oximetry (%) 98 Oxygen Delivery Method Room Air Intake Visit Reasons: 6 mo f/u Intake Note: Pt presents tot he office for a 6 month follow up for chronic inflammatory demyelinating neuropathy. Frozen Pie Maker Required: No Allergies amlodipine Adverse Reaction (Intermediate, Verified 02/19/24 07:34) tiredness and numbness right side of face Medication List - Last Reconciled 02/19/24 by Tamiko Tavarez MD immun glob G(IgG)-gly-IgA ov50 10 % (Gammagard Liquid) 220 gm IV loading dose over 3 days followed by 100gm IV q 4 weeks intravenously; lisinopril 10 mg PO DAILY HPI Comments Details: 38y/o right handed male comes for follow up. He noticed mild improvement since he started on IVIG. He denies any progression or worsening.ome sleep study was inconclusive but he still reports loud snoring, frequent arousals, hypersomnia , witnessed apneas. EMG done 6 months ago showed improvement EMG-study done last year, there is overall improvement. The most evidence of demyelination was seen on right tibial nerve (drop in amplitude in non entrapment site). Peroneal nerves showed mildly prolonged distal latency without signs of c onduction block. Left tibial and bilateral sural nerves are now normal. H reflexes appeared similar to last year, and I believe they show normal and symmetric latencies. 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 His CSF - showed albuminocytologic dissociation. His symptoms started about 8 months ago in [place] , followed by Fingers , then weakness, he has trouble climbing stairs, running jumping. Prior to all this he had pain after work - in his feet and legs. No back or neck pain. He denies any preceding GI or respiratory infection. The tingling is present throughout the day fluctuates in intensity, more in the morning. He saw his PCP and found to have high BP started on amlodipine. He had right facial weakness, difficulty whistling , spitting etc, The medication was switched to lisinopril and his face weakness resolved. He lost 40 lbs intentionally to help with his HTN control [facility] Medical History Perianal abscess Chronic inflammatory demyelinating polyneuropathy History of rectal abscess Neuropathy Insomnia Hypersomnia Snoring Tingling in extremities Weakness Family History Maternal Grandfather Heart disease Father Afib Mother Thyroid disease Family/Other Cancer Social History Alcohol intake: never Patient Tobacco Use Status: Never used Tobacco Substance Use Type: Marijuana Physical Exam Vital Signs: Last Vital Signs Pulse 88 02/19/24 07:36 Resp 16 02/19/24 07:36 BP 138/88 02/19/24 07:36 Pulse Ox 98 02/19/24 07:36 Oxygen Delivery Method Room Air 02/19/24 07:36 BMI result Body Mass Index 38.3 Const Orientation/consciousness: patient oriented x3 Eyes Pupils: Equal, round and reactive pupils present Neuro General: patient oriented x3, gait normal, tone normal, moves all extremities and no focal motor deficits Cranial nerves: Yes Facial sensation intact/muscles of mastication intact, Yes Equal, round and reactive pupils present, Yes Bilaterally intact EOM present, Yes Nystagmus not present, Yes Normal facial strength present, Yes Midline tongue present and Yes Symmetric palate elevation present Cognition (Neuro): normal cognition Gait exam (Neuro): Normal gait present Motor exam (neuro): 5/5 motor strength present throughout and Normal motor muscle tone present throughout Deep tendon reflexes (DTR's): Right triceps reflex intensity grade: 2+, Left triceps reflex intensity grade: 2+, Rt Biceps (C5, C6): 2+, Left biceps reflex intensity grade: 2+, Right brachioradialis reflex intensity grade: 2+, Left brachioradialis reflex intensity grade: 2+, Right patellar reflex intensity grade: 2+, Left patellar reflex intensity grade: 2+, Right ankle reflex intens ity grade: 1+ and Left ankle reflex intensity grade: 1+ Coordination: [id number]-ok-cwcx test normal and jvlm-au-jjgn test normal Assessment & Plan Assessment & Plan (1) Chronic inflammatory demyelinating polyneuropathy: Comment: distal and proximal weakness, sensory symptoms, EMG-sensorimotor demeylinating , axonal polyneuropathy CSF- albuminocytologic dissociation Code(s): G61.81 - Chronic inflammatory demyelinating polyneuritis Category: Medical (2) Hypersomnia: Code(s): G47.10 - Hypersomnia, unspecified Category: Medical (3) Snoring: Code(s): R06.83 - Snoring Category: Medical Plan IVIG - loading dose of 2g/kg over 3 days( 116kg X2 = 232 gms) and maintenance dose of 1gm/kg q 3 weeks HE WAS UNABLE TO TOLERATE SOLUMEDROL INFUSIONS - multiple side effects He is doing well on IVIG except for headaches during infusion -responded to medications. Home sleep test was inconclusive - he reports excessive fatigue loud snoring frequent arousals. I will schedule him for an in lab sleep study for a more detailed evaluation. Orders: Orders RT PSG in-lab sleep study Today G47.00 - Insomnia, unspecified, G47.10 - Hypersomnia, unspecified, R06.83 - Snoring Coding Level of Care Code Est Pt Level 5 (92891) Complex EM visit Add On G2211 Diagnoses Chronic inflammatory demyelinating polyneuropathy G61.81 Hypersomnia G47.10 Snoring R06.83
[2024-02-19 07:36] VITALS: BP 138/88; PULSE 88; RESP 16; O2SAT 98; BMI 38.3
== END 2024-02-19 08:08 | disposition home or self-care (01) ==
PROVIDERS: PCP Pediatrics; Visit Provider Psychiatry & Neurology Neurology
DX: G61.81 Chronic inflammatory demyelinating polyneuritis (principal); G47.10 Hypersomnia, unspecified; R06.83 Snoring; Z79.69 Long term (current) use of other immunomodulators and immunosuppressants
CPT/HCPCS: 99214

== ENCOUNTER → 2024-02-19 07:33 | Outpatient (BNVA) | payer OTHER, SELFPAY | PROVIDERS: PCP Pediatrics; Visit Provider Psychiatry & Neurology Neurology ==

== ENCOUNTER 2024-10-03 08:22 | Outpatient (AMB) | payer OTHER, SELFPAY ==
--- NOTE | 2024-10-03 08:22 | MHC.OFFVIS ---
Vital Signs 10/03/24 08:26 Height 6 ft Weight 292 lb BMI 39.6 BP 130/82 Blood Pressure Location Rt brachial Position Sitting Pulse 88 Pulse Source Pulse Oximeter Pulse Oximetry (%) 96 Oxygen Delivery Method Room Air Intake Visit Reasons: Follow UO 6mo-LVM Intake Note: patient following up for sleep study. attempts made to book sleep study unsuccessful letter was sent to patient as well. Allergies amlodipine Adverse Reaction (Intermediate, Verified 10/03/24 08:26) tiredness and numbness right side of face HPI Comments Details: 38y/o right handed male comes for follow up. He noticed mild improvement since he started on IVIG. He denies any progression or worsening.ome sleep study was inconclusive but he still reports loud snoring, frequent arousals, hypersomnia , witnessed apneas. EMG done 6 months ago showed improvement EMG-study done last year, there is overall improvement. The most evidence of demyelination was seen on right tibial nerve (drop in amplitude in non entrapment site). Peroneal nerves showed mildly prolonged distal latency without signs of conduction block. Left tibial and bilateral sural nerves are now normal. H reflexes appeared similar to last year, and I believe they show normal and symmetric latencies. 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 His CSF - showed albuminocytologic dissociation. His symptoms started about 8 months ago in [place] , followed by Fingers , then weakness, he has trouble climbing stairs, running jumping. Prior to all this he had pain after work - in his feet and legs. No back or neck pain. He denies any preceding GI or respiratory infection. The tingling is present throughout the day fluctuates in intensity, more in the morning. He saw his PCP and found to have high BP started on amlodipine. He had right facial weakness, difficulty whistling , spitting etc, The medication was switched to lisinopril and his face weakness resolved. He lost 40 lbs intentionally to help with his HTN control [facility] Medical History Perianal abscess Chronic inflammatory demyelinating polyneuropathy History of rectal abscess Neuropathy Insomnia Hypersomnia Snoring Tingling in extremities Weakness Family History Maternal Grandfather Heart disease Father Afib Mother Thyroid disease Family/Other Cancer Social History Alcohol intake: never Patient Tobacco Use Status: Never used Tobacco Substance Use Type: Marijuana Physical Exam Vital Signs: Last Vital Signs Pulse 88 10/03/24 08:26 BP 130/82 10/03/24 08:26 Pulse Ox 96 10/03/24 08:26 Oxygen Delivery Method Room Air 10/03/24 08:26 BMI result Body Mass Index 39.6 Const Orientation/consciousness: patient oriented x3 Eyes Pupils: Equal, round and reactive pupils present Neuro General: patient oriented x3, gait normal, tone normal, moves all extremities and no focal motor deficits Cranial nerves: Yes Facial sensation intact/muscles of mastication intact, Yes Equal, round and reactive pupils present, Yes Bilaterally intact EOM present, Yes Nystagmus not present, Yes Normal facial strength present, Yes Midline tongue present and Yes Symmetric palate elevation present Cognition (Neuro): normal cognition Gait exam (Neuro): Normal gait present Motor exam (neuro): 5/5 motor strength present throughout and Normal motor muscle tone present throughout Deep tendon reflexes (DTR's): Right triceps reflex intensity grade: 2+, Left triceps reflex intensity grade: 2+, Rt Biceps (C5, C6): 2+, Left biceps reflex intensity grade: 2+, Right brachioradialis reflex intensity grade: 2+, Left brachioradialis reflex intensity grade: 2+, Right patellar reflex intensity grade: 2+, Left patellar reflex intensity grade: 2+, Right ankle reflex intensity grade: 1+ and Left ankle reflex intensity grade: 1+ Coordination: mtukcc-sg-vygd test normal and zvaz-tn-cpsh test normal Assessment & Plan Assessment & Plan (1) Chronic inflammatory demyelinating polyneuropathy: Comment: distal and proximal weakness, sensory symptoms, EMG-sensorimotor demeylinating , axonal polyneuropathy CSF- albuminocytologic dissociation Code(s): G61.81 - Chronic inflammatory demyelinating polyneuritis Category: Medical (2) Hypersomnia: Code(s): G47.10 - Hypersomnia, unspecified Category: Medical (3) Snoring: Code(s): R06.83 - Snoring Category: Medical Plan IVIG - loading dose of 2g/kg over 3 days( 116kg X2 = 232 gms) and maintenance dose of 1gm/kg q 3 weeks HE WAS UNABLE TO TOLERATE SOLUMEDROL INFUSIONS - multiple side effects He is doing well on IVIG except for headaches during infusion -responded to medications. Will refer to neuromuscular specialist for second opinion Home sleep test was inconclusive - he reports excessive fatigue loud snoring frequent arousals. I will schedule him for an in lab sleep study for a more detailed evaluation. Orders: Referrals Neuromuscular Medicine Referral G6.81 - Chronic inflammatory demyelinating polyneuritis Coding Level of Care Code Est Pt Level 4 (12046) Complex EM visit Add On G2211 Diagnoses Chronic inflammatory demyelinating polyneuropathy G61.81 Hypersomnia G47.10 Snoring R06.83
[2024-10-03 08:26] VITALS: BP 130/82; PULSE 88; O2SAT 96; BMI 39.6
--- OUTSIDE RECORDS SUMMARY | 2024-10-03 08:28 | XMS_ITS | Encounter Summary ---
Author Organization [facility] Address [address] [place] [address] Care Team Providers Care Pocket Secretary Assembler Name Role Phone Reina Reid MD Primary Care Provider Unavailable Morgan Theodore Primary Care Provider Unav ailable Reina Reid MD Primary Care Provider Unavailable Manfred Monk MD Primary Care Provide r Unavailable Reina Reid MD Primary Care Provider Unavailable Nathan Chambers MD Primary Care Provider [phone] Jack Mancia MD Unavailable [phone] Pedrito Pereira MD Unavailable Reason for Visit * Reason Onset Date Comments [facility]NA Call 11/15/2018 Encounter Details Date Type Department Care Team Description 11/15/2018 Telephone Adult Medicine - [address] [address] Reina Reid MD [facility]NA Call Social History Tobacco Use Types Packs/Day Years Used Date Smoking Tobacco: Former Smokeless Tobacco: Never Sex Assigned at Date Recorded Male 10/10/2021 7:50 AM E DT Job Start Date Occupation Industry Not on file Not on file Not on file documented as of this encounter Miscellaneous Notes * Telephone Encounter - Ty Ramos - 11/15/2018 8:51 AM EDT [facility]NA CALL ?? Which [facility] office is calling? thone ?? Full name of caller: eugene ?? The caller is A nurse ? Is the caller at the patients home?: NO ?? Reason for call: patient is being discharged today fyi ?? Does caller need an urgent call back? NO ?? Was CONTACT Telephone # obtained above?: YES ?? Fax #: documented in this encounter Plan of Treatment Not on file documented as of this encounter Visit Diagnoses Not on filedocumented in this encounter Care Teams Pocket Secretary Assembler Relationship Specialty Start Date End Date Reina Reid MD PCP - General Internal Medicine 09/12/17 Morgan Theodore PCP - General Internal Medicine 12/09/18 03/06/19 Reina Reid MD PCP - General Internal Medicine 03/07/19 Manfred Monk MD PCP - General Internal Medicine 03/24/19 1 06/06/18 Reina Reid MD PCP - General Internal Medicine 04/07/19 Nathan Chambers MD [address] [place] [id number] PCP - General Internal Medicine 10/12/20 Jack Mancia MD [address] [place] [address] [place] [address] Specialist Cardiovascular Disease 09/05/22 3 Pedrito Pereira MD [address] [place] [address] [place] [address] Specialist Cardiovascular Disease 09/11/22 documented as of this encounter
--- OUTSIDE RECORDS SUMMARY | 2024-10-03 08:29 | XMS_ITS | Encounter Summary ---
Author Organization [facility] Address [address] [place] [address] Care Team Providers Care Aircraft Maintenance Technician Name Role Phone Reina Reid MD Primary Care Provider Unavailable Morgan Theodore Primary Care Provider Unav ailable Reina Reid MD Primary Care Provider Unavailable Manfred Monk MD Primary Care Provide r Unavailable Reina Reid MD Primary Care Provider Unavailable Nathan Chambers MD Primary Care Provider [phone] Jack Mancia MD Unavailable [phone] Pedrito Pereira MD Unavailable Encounter Details Date Type Department Care Team Description 11/09/2018 [facility] Medical Records [address] [place] [address] Taj Villagomez MD [address] [place] [id number] Social History Tobacco Use Types Packs/Day Years Used Date Smoking Tobacco: Never Smokeless Tobacco: Never Comments:marijuana smoker 2- 3 times a week Alcohol Use Standard Drinks/Week Comments No 0 (1 standard drink = 0.6 oz pur e alcohol) Sex Assigned at Date Recorded Male 10/10/2021 7:50 AM E DT Job Start Date Occupation Industry Not on file Not on file Not on file documented as of this encounter Plan of Treatment Not on file documented as of this encounter Visit Diagnoses Not on filedocumented in this encounter Care Teams Aircraft Maintenance Technician Relationship Specialty Start Date End Date Reina Reid MD PCP - General Internal Medicine 09/12/17 Morgan Theodore PCP - General Internal Medicine 12/09/18 03/06/19 Reina Reid MD PCP - General Internal Medicine 03/07/19 Manfred Monk MD PCP - General Internal Medicine 03/24/19 1 06/06/18 Reina Reid MD PCP - General Internal Medicine 04/07/19 Nathan Chambers MD [address] [place] [id number] PCP - General Internal Medicine 10/12/20 Jack Mancia MD [address] [place] [address] Dr Castro [address] [place] [id number] Specialist Cardiovascular Disease 09/05/22 3 Pedrito Pereira MD [address] [place] [address] Dr Castro [address] [place] [id number] Specialist Cardiovascular Disease 09/11/22 documented as of this encounter
--- OUTSIDE RECORDS SUMMARY | 2024-10-03 08:29 | XMS_ITS | Clinical Summary ---
Author Organization [facility] Address [address] [place] [address] Care Team Providers Care Gang Mower Operator Name Role Phone Nathan Chambers MD Primary Care Provider [phone] Pedrito Pereira MD Unavailable Allergies Active Allergy Reactions Severity Noted Date Comments Amlodipine Numbness, tingling o r swelling of the lips, tongue or mouth 09/11/2022 Medications Medication Sig Dispensed Refills Start Date End Date Status lisinopril (PRINIVIL,ZESTRIL) 10 MG tabletIndications:Prim moriah hypertension Take 1 Tablet by mouth daily. 90 Tablet 0 03/28/2024 Active Active Problems Problem Noted Date Hepatosplenomegaly 12/04/2022 Pulmonary nodules 12/04/2022 Overview: 11/17 Numbness and tingling of both lower extr emities 09/13/2022 Inappropriate sinus node tachycardia Alopecia 02/15/2021 Hypertriglyceridemia 04/07/2019 Overview: 12/15 Elevated blood pressure reading 03/17/20 19 Anxiety 03/17/2019 Obesity (BMI 30-39.9) 09/19/2017 Gout Overview: 09/12- 1st episode in [facility] Resolved Problems Problem Noted Date Resolved Date Perirectal abscess 11/14/2018 03/17/2019 Immunizations Name Administration Dates Next Due Influenza Vaccine-preservati ve Free-quadrivalent 4 Years 02/15/2021,03/17/2019 TD (STATE SUPPLIED FOR ADULTS AND CHILDREN) 02/26 Family History Medical History Relation Name Comments Cerebral Aneurysm Aunt 1 paternal Cancer of Small Bowel Aunt 2 maternal Atrial fibrillation Father arrhythmia Father [place] Maternal Grandfather Cancer of the Lung Maternal Grandmother b one cancer, throat cancer Thyroid Disorder Mother Other Mother's side not sure- the gamit [place] Paternal Grandfather Relation Name Status Comments Aunt 1 paternal Alive Aunt 2 maternal Alive Father Maternal Grandfather Maternal Grandmother Mother Mother's side Paternal Grandfather Social History Tobacco Use Types Packs/Day Years Used Date Smoking Tobacco: Never Smokeless Tobacco: Never Tobacco Cessation:Counseling Given: Not Answered Comments:marijuana smoker 2-3 times a week Alcohol Use Standard Drinks/Week Comments No 0 (1 standard drink = 0.6 oz pur e alcohol) Sex Assigned at Date Recorded Male 10/10/2021 7:50 AM E DT Job Start Date Occupation Industry Not on file Not on file Not on file Last Filed Vital Signs Vital Sign Reading Time Taken Comments Blood Pressure 138/80 04/11/2023 3:33 PM EST Pulse 106 04/11/2023 3:33 PM EST Temperature 35.9 ??C (96.6 ??F) 04/11/2023 3:33 PM ES T Respiratory Rate 16 04/11/2023 3:33 PM EST Oxygen Saturation 97% 09/13/2022 8:46 AM EDT Inhaled Oxygen Concentration - - Weight 122.5 kg (270 lb) 04/11/2023 3:33 PM EST Height 182.9 cm (6') 04/11/2023 3:33 PM EST Body Mass Index 36.62 04/11/2023 3:33 PM EST Plan of Treatment Health Maintenance Due Date Last Done Comments Covid-19 Vaccine (#1) 05/31/1988 DTAP/TDAP/TD (1 - Tdap) 03/18/2019 03/17/2019 BMI CHECK/ADVISE 05/28/2024 09/26/2022, , 08/31/2022, Additional history exists DEPRESSION SCREENING/FOLLOWUP 05/28/2024 08/20/2019 SOCIAL NEEDS SCREENING 05/28/2024 INFLUENZA (Season Ended) 2025 02/15/2021, 02/26 BASELINE HEALTH EXAM 18-39 10/12/202510/12, 04/04/2019, 03/17/2019 CHOLESTEROL SCREENING 09/02/2027 09/01/2022 , 01/09/2022, 12/01/2020, Additional history exists PNEUMOCOCCAL VACCINE FOR HIG H RISK PATIENTS (#1) 11/28/2052 Care Teams Gang Mower Operator Relationship Specialty Start Date End Date Nathan Chambers MD [address] [place] [address] PCP - General Internal Medicine 10/12/20 Pedrito Pereira MD [address] [place] [address] Specialist Cardiovascular Disease 09/11/22
--- OUTSIDE RECORDS SUMMARY | 2024-10-03 08:29 | XMS_ITS | Encounter Summary ---
Author Organization [facility] Address [address] [place] [address] Care Team Providers Care Bottom Saw Operator Name Role Phone Reina Reid MD Primary Care Provider Unavailable Morgan Theodore Primary Care Provider Unav ailable Reina Reid MD Primary Care Provider Unavailable Manfred Monk MD Primary Care Provide r Unavailable Reina Reid MD Primary Care Provider Unavailable Nathan Chambers MD Primary Care Provider [phone] Jack Mancia MD Unavailable [phone] Pedrito Pereira MD Unavailable Encounter Details Date Type Department Care Team Description 08/05/2018 SCAN Medical Records [address] [place] [id number] Mandeep Quintero MD Social History Tobacco Use Types Packs/Day Years Used Date Smoking Tobacco: Former Smokeless Tobacco: Never Sex Assigned at Date Recorded Male 10/10/2021 7:50 AM E DT Job Start Date Occupation Industry Not on file Not on file Not on file documented as of this encounter Plan of Treatment Not on file documented as of this encounter Procedures Procedure Name Priority Date/Time Associated Diagnosis Comments OUTSIDE PLAIN FILM Routine 08/05/2018 documented in this encounter Results * OUTSIDE PLAIN FILM (08/05/2018) Provider Abstract RADIOLOGY documented in this encounter Visit Diagnoses Not on filedocumented in this encounter Care Teams Bottom Saw Operator Relationship Specialty Start Date End Date Reina Reid MD PCP - General Internal Medicine 09/12/17 Morgan Theodore PCP - General Internal Medicine 12/09/18 03/06/19 Reina Reid MD PCP - General Internal Medicine 03/07/19 Manfred Monk MD PCP - General Internal Medicine 03/24/19 1 06/06/18 Reina Reid MD PCP - General Internal Medicine 04/07/19 Nathan Chambers MD [address] [place] [id number] PCP - General Internal Medicine 10/12/20 Jack Mancia MD [address] [place] [address] Dr Castro [address] [place] [id number] Specialist Cardiovascular Disease 09/05/22 3 Pedrito Pereira MD [address] [place] [address] [place] [address] Specialist Cardiovascular Disease 09/11/22 documented as of this encounter
--- OUTSIDE RECORDS SUMMARY | 2024-10-03 08:29 | XMS_ITS | Encounter Summary ---
Author Organization [facility] Address [address] [place] [address] Care Team Providers Care Cream Buyer Name Role Phone Reina Reid MD Primary Care Provider Unavailable Morgan Theodore Primary Care Provider Unav ailable Reina Reid MD Primary Care Provider Unavailable Manfred Monk MD Primary Care Provide r Unavailable Reina Reid MD Primary Care Provider Unavailable Nathan Chambers MD Primary Care Provider [phone] Jack Mancia MD Unavailable [phone] Pedrito Pereira MD Unavailable Encounter Details Date Type Department Care Team Description 11/19/2018 Orders Only Medical Records [address] [place] [id number] Abstract, Provider Social History Tobacco Use Types Packs/Day Years [...] on filedocumented in this encounter Care Teams Cream Buyer Relationship Specialty Start Date End Date Reina Reid MD PCP - General Internal Medicine 09/12/17 Morgan Theodore PCP - General Internal Medicine 12/09/18 03/06/19 Reina Reid MD PCP - General Internal Medicine 03/07/19 Manfred Monk MD PCP - General Internal Medicine 03/24/19 1 06/06/18 Jay-Reina Mauro MD PCP - General Internal Medicine 04/07/19 Nathan Chambers MD [address] [place] [address] PCP - General Internal Medicine 10/12/20 Jack Mancia MD [address] [place] [address] Dr Castro [address] [place] [phone] Specialist Cardiovascular Disease 09/05/22 3 Pedrito Pereira MD [address] [place] [address] Dr Castro [address] [place] [address] Specialist Cardiovascular Disease 09/11/22 documented as of this encounter
--- OUTSIDE RECORDS SUMMARY | 2024-10-03 08:29 | XMS_ITS | Encounter Summary ---
Author Organization [facility] Address [address] [place] [address] Care Team Providers Care Manager People Name Role Phone Nathan Chambers MD Primary Care Provider [phone] Pedrito Pereira MD Unavailable Reason for Visit * Reason Comments E-prescribe Rx Request Encounter Details Date Type Department Care Team Description 09/22/2022 Refill Adult Medicine - [facility] [address] [place] [address] Beth Bradford MD E-prescribe Rx Request Social History Tobacco Use Types Packs/Day Years Used Date Smoking Tobacco: Never Smokeless Tobacco: Never Comments:marijuana smoker 2- 3 times a week Alcohol Use Standard Drinks/Week Comments No 0 (1 standard drink = 0.6 oz pur e alcohol) Sex Assigned at Date Recorded Male 10/10/2021 7:50 AM E DT Job Start Date Occupation Industry Not on file Not on file Not on file COVID-19 Exposure Response Date Recorded In the last 10 days, have yo u been in contact with someone who was confirmed or suspected to have Coronavirus/COVID-19? No / Unsure 09/22/2022 8:31 AM EDT documented as of this encounter Plan of Treatment Not on file documented as of this encounter Visit Diagnoses Not on filedocumented in this encounter Care Teams Manager People Relationship Specialty Start Date End Date Nathan Chambers MD [address] [place] [address] PCP - General Internal Medicine 10/12/20 Pedrito Pereira MD [address] [place] [address] Specialist Cardiovascular Disease 09/11/22 documented as of this encounter
--- OUTSIDE RECORDS SUMMARY | 2024-10-03 08:29 | XMS_ITS | Encounter Summary ---
Author Organization [facility] Address [address] [place] [address] Care Team Providers Care Cut Out Marker Name Role Phone Nathan Chambers MD Primary Care Provider [phone] Pedrito Pereira MD Unavailable Encounter Details Date Type Department Care Team Description 09/17/2022 Pt. Non Urgent Medic al Question Adult Medicine - [facility] [address] [place] [address] Alonzo Boles PA [address] [place] [address] Social History Tobacco Use Types Packs/Day Years [...] suspected to have Coronavirus/COVID-19? No / Unsure 09/13/2022 8:23 AM EDT documented as of this encounter Plan of Treatment Not on file documented as of this encounter Visit Diagnoses Not on filedocumented in this encounter Care Teams Cut Out Marker Relationship Specialty Start Date End Date Nathan Chambers MD [address] [place] [address] PCP - General Internal Medicine 10/12/20 Pedrito Pereira MD [address] [place] [phone] Specialist Cardiovascular Disease 09/11/22 documented as of this encounter
--- OUTSIDE RECORDS SUMMARY | 2024-10-03 08:29 | XMS_ITS | Clinical Summary ---
Author Organization [facility] [address] [facility] lding Address [address] [place] [address] Phone Care Team Providers Care Stock Manager Name Role Phone Qamar Chambers MD Primary Care Provider [phone] Allergies Active Allergy Reactions Criticality Noted Date Comments Amlodipine 11/16/2022 Medications ibuprofen (ADVIL,MOTRIN) 400 mg tablet Take 2 tablets (800 mg total) by mouth every 6 hours as needed. Active semaglutide (Wegovy) 0.25 mg/0.5 mL injection pen Inject 0.25 mg under the skin every 7 (seven) days. Start with 0.25mg weekly for 4 weeks then increase to 0.5mg weekly 2 mL 2 5 12/08/19 25 Active pantoprazole (PROTONIX) 20 mg EC tablet Take 1 tablet (20 mg total) by mouth 1 (one) time each day. Take in am on empty stomach, wait 30 mins and then eat to activate the medication 30 each 5 08/01/19 26 Active lisinopriL (PRINIVIL,ZESTR IL) 10 mg tabletIndicatio ns:Hypertension , unspecified type Take 1 tablet (10 mg total) by mouth 1 (one) time each day. 90 tablet 1 5 Active lisinopriL (PRINIVIL,ZESTR IL) 10 mg tabletIndicatio ns:Hypertension , unspecified type Take 1 tablet (10 mg total) by mouth 1 (one) time each day. 90 tablet 1 4 09/09/19 25 Discontin ued(Reord er) Active Problems Problem Noted Date Diagnosed Date Hypertension 06/10/2024 Severe obesity (BMI 35.0-39. 9) with comorbidity ([facility] V24, [facility] V28) 06/10/2024 Fatty liver 06/10/2024 CIDP (chronic inflammatory d emyelinating polyneuropathy) ([facility] V24, [facility] V28) 01/08/2023 Overview (06/10/2024): I was diagnosed in December of last year by Dr. Tavarez at [facility] Hepatosplenomegaly 12/04/2022 Splenomegaly 11/26/2022 Encounters Date Type Department Care Team Description 09/08/2024 11:00 AM EDT Office Visit Adult Medicine [address] [phone] Jennifer Sellers PA Class 2 obesity without serious comorbidity with body mass index (BMI) of 38.0 to 38.9 in adult, unspecified obesity type (Primary Dx); Hypertension, unspecified type; Fatty liver; Hepatosplenomegaly; CIDP (chronic inflammatory demyelinating polyneuropathy) ([facility] V24, [facility] V28); Splenomegaly 07/31/2024 2:20 PM EST Office Visit Gastroenterology [address] [phone] Carlos Mcgee PA Fatty liver (Primary Dx); Elevated liver enzymes; Elevated cholesterol; Nausea; CIDP (chronic inflammatory demyelinating polyneuropathy) ([facility] V24, [facility] V28) 07/21/2024 Telephone Gastroenterology [facility] [address] [phone] Carlos Mcgee PA from Last 3 Months Immunizations Name Administration Dates Next Due Influenza Quadravalent, MDCK , 0.5ml, preservative free (Flucelvax) 6mo and older 02/15/2021,03/17/2019 Td Tetanus diptheria (Tdvax) 7yo and older 03/17 Surgical History Surgery Date Site/Laterality Comments WISDOM TOOTH EXTRACTION PROCEDURE: HISTORICAL WISDOM TEETH EXTRACTION OTHER SURGICAL HISTORY 2018 PROCEDURE: ---- OTHER ----; COMMENT: perianal abscess drainage Medical History Medical History Date Comments Gout DX:Gout; COMMENT : 09/12- 1st episode in UC Anxiety 03/17/2019 DX:Anxiety Perirectal abscess 11/14/2018 DX:Perirectal abscess Hyperlipidemia DX:Hyperlipidemi a Elevated liver enzymes DX:Elevat ed liver enzymes Fatty liver DX:Fatty liver Family History Medical History Relation Name Comments Cerebral aneurysm Aunt 1 paternal Cancer of Small Bowel Aunt 2 maternal Other: Atrial fibrillation Father Other: arrhythmia Father Heart attack Maternal Grandfather Lung cancer Maternal Grandmother bone ca ncer, throat cancer Thyroid disease Mother Other: Other Mother's side not sure- the gamit Heart attack Paternal Grandfather Relation Name Status Comments Aunt 1 paternal Alive Aunt 2 maternal Alive Father Maternal Grandfather Maternal Grandmother Mother Mother's side Paternal Grandfather Social History Tobacco Use Types Packs/Day Years Used Date Smoking Tobacco: Never Tobacco Cessation:Counseling Given: No Alcohol Use Standard Drinks/Week Comments No 0 (1 standard drink = 0.6 oz pur e alcohol) Housing Instability Answer Date Recorde d Are you worried that in the next 2 months you may not have stable housing? No 04/10/2024 Food Access & Nutrition Answer Date Rec orded Do you have access to a vari ety of food including fruits and vegetables? Yes 04/10/2024 Access to Healthcare Answer Date Record ed Within the last 3 months, ho w many times did you visit the emergency department for your medical care? 1 04/10/2024 Health Literacy Answer Date Recorded How often do you need to hav e someone help you when you read instructions, pamphlets, or other written material from your doctor or pharmacy? Never 04/10/2024 Caregiver: How often do you need to have someone help you when you read instructions, pamphlets, or other written material from your doctor or pharmacy? Not on file 04/10/2024 Financial Risk Answer Date Recorded How hard is it for you to pa y for the very basics like food, housing, medical care, and air conditioning / heating? Patient declined 04/10/2024 Transportation Answer Date Recorded Has the lack of transportati on kept you from meetings, work, or from getting things needed for daily living? No Has the lack of transportati on kept you from medical appointments or from getting medications? No 04/10/2024 Social Isolation Answer Date Recorded How often do you feel lonely or isolated from those around you? Sometimes 04/10/2024 Food Risk Answer Date Recorded Within the past 12 months we worried whether our food would run out before we got money to buy more. Never true 04/10/2024 Within the past 12 months th e food we bought just didn't last and we didn't have money to get more. Never true 04/10/2024 Dependent Care Answer Date Recorded Do you need help finding or paying for care for your loved ones. For example, children's choir director or elderly care for an older adult? No 04/10/2024 Education Answer Date Recorded Do you think completing more education or training, like finishing a GED, going to college, or learning a trade, would be helpful for you? Yes 04/10/2024 Employment and Income Answer Date Recor ded During the last four weeks, have you been actively looking for work? No 04/10/2024 Living Situation Answer Date Recorded What is your living situation? 1 06/10/2023 Sex and Gender Information Value Date Recorded Sex Assigned at Not on file Legal Sex Male 7:07 PM EST Gender Identity Not on file Sexual Orientation Not on file Obstetrics History Last Filed Vital Signs Vital Sign Reading Time Taken Comments Blood Pressure 130/80 09/08/2024 10:55 AM EDT Pulse 95 09/08/2024 10:55 AM EDT Temperature 36.6 ??C (97.9 ??F) 09/08/2024 10:55 AM E DT Respiratory Rate - - Oxygen Saturation 99% 06/23/2024 9:06 AM EST Inhaled Oxygen Concentration - - Weight 130 kg (287 lb) 09/08/2024 10:55 AM EDT Height 182.9 cm (6') 07/31/2024 2:27 PM EST Body Mass Index 38.92 07/31/2024 2:27 PM EST Plan of Treatment Upcoming Encounters Date Type Department Care Team (Late st Contact Info) Description 10/28/2024 11:10 AM EDT Office Visit Gastroenterology - [place] [address] [place] [phone] Barbara Diaz PA 175 [facility] [address] [place] [address] 01/09/2025 1:15 PM EDT Office Visit Adult Medicine - [place] [address] [place] [phone] Jennifer Sellers PA [address] [place] [address] 06/23/2025 1:00 PM EST Office Visit Hematology Oncology [address] [place] [address] Joey Blanco MD [address] [place] [address] Health Maintenance Due Date Last Done Comments Pneumococcal Vaccine: Pediatrics (0 to 5 Years) and At-Risk Patients (6 to 64 Years) (1 of 2 - PCV) 11/28/2006 HIV Screening 05/06/2022 Hepatitis C Screening 05/06/2022 COVID-19 Vaccine ( season) 2024 04/11/2021, 09/27/2020, 09/06/2020 Influenza Vaccine (Season Ended) 2025 02/15/2021, 03/17/2019, 02/22/2004 Social Influencers of Health Screening 04/10/2025 04/10/2024 Hypertension/CHF/CAD Annual BMP Blood Test 07/22/2025 07/22/2024, 04/10/2024 Depression Screening 09/08/2025 09/08/2024 DTaP,Tdap,and Td Vaccines (7 - Td or Tdap) 03/17/2029 03/17/2019, 11/25/1992, 07/26/1989, Additional history exists Cholesterol Screening (Lipid Panel) 04/10/2029 04/10/2024 HIB Vaccines Completed 04/27/1989 IPV Vaccines Completed 11/25/1992, 05/1989, 04/27/1988, Additional history exists MMR Vaccines Completed 10/05/1998, 03/28/1989 Hepatitis B Vaccines Completed 08/18/1999, 04/14/1999, 03/17/1999 HPV Vaccines Aged Out No longer eligi ble based on patient's age to complete this topic Hepatitis A Vaccines Aged Out No long er eligible based on patient's age to complete this topic Meningococcal ACWY Vaccine Aged Out N o longer eligible based on patient's age to complete this topic Meningococcal B Vaccine Aged Out No l onger eligible based on patient's age to complete this topic RSV Immunization Patients Under 20 months Aged Out No longer eligible based on patient's age to complete this topic Varicella Vaccines Aged Out No longer eligible based on patient's age to complete this topic Procedures Procedure Name Priority Date/Time Associated Diagnosis Comments CBC WITH AUTO DIFFERENTIAL Routine 07/22/2024 3:54 PM EST Abdominal discomfort Elevated liver enzymes C-REACTIVE PROTEIN Routine 07/22/2024 3: 54 PM EST Abdominal discomfort Elevated liver enzymes IRON Routine 07/22/2024 3:54 PM EST Abdominal discomfort Elevated liver enzymes FERRITIN Routine 07/22/2024 3:54 PM EST Abdominal discomfort Elevated liver enzymes COMPREHENSIVE METABOLIC PANEL Routine 07/22/2024 3:54 PM EST Abdominal discomfort Elevated liver enzymes CBC AND DIFFERENTIAL Routine 07/22/2024 3:54 PM EST Abdominal discomfort Elevated liver enzymes LIPID PANEL WITH REFLEX TO DIRECT LDL Routine 04/10/2024 2:15 PM EST Class 2 obesity without serious comorbidity with body mass index (BMI) of 38.0 to 38.9 in adult, unspecified obesity type from Last 3 Months or Most Recently Relevant to Health Maintenance Results * (ABNORMAL) CBC auto differential (07/22/2024 3:54 PM EST) WBC 8.9 4.8 - 10.8 K/[facility] LAB HEMETOLOGY METHOD 07/22/2024 5:50 PM EST [facility] RBC 5.00 4.50 - 5.50 M/mcL LAB HEMETOLOGY METHOD 07/22/2024 5:50 PM [facility] Hemoglobin 15.3 13.5 - 17.5 g/dL LAB HEMETOLOGY METHOD 07/22/2024 5:50 PM [facility] Hematocrit 44.9 42.0 - 54.0 % LAB HEMETOLOGY METHOD 07/22/2024 5:50 PM [facility] MCV 90.0 79.0 - 98.0 FL LAB HEMETOLOGY METHOD 07/22/2024 5:50 PM [facility] MCH 30.7 27.0 - 32.0 pcg LAB HEMETOLOGY METHOD 07/22/2024 5:50 PM [facility] MCHC 34.1 32.0 - 37.0 g/dL LAB HEMETOLOGY METHOD 07/22/2024 5:50 PM [facility] RDW 12.0 11.0 - 15.0 % LAB HEMETOLOGY METHOD 07/22/2024 5:50 PM [facility] Platelets 287 130 - 400 K/mcL LAB HEMETOLOGY METHOD 07/22/2024 5:50 PM [facility] MPV 11.3(H) 7.0 - 11.0 FL LAB HEMETOLOGY METHOD 07/22/2024 5:50 PM [facility] NRBC 0.0 <1.0 % LAB HEMETOLOGY METHOD 07/22/2024 5:50 PM [facility] NRBC Absolute 0.00 <0.10 K/mcL LAB HEMETOLOGY METHOD 07/22/2024 5:50 PM [facility] Neutrophils Relative 60.3 % LAB HEMETOLOGY METHOD 07/22/2024 5:50 PM [facility] Lymphocytes Relative 29.3 % LAB HEMETOLOGY METHOD 07/22/2024 5:50 PM [facility] Monocytes Relative 7.7 % LAB HEMETOLOGY METHOD 07/22/2024 5:50 PM EST [facility] Eosinophils Relative 1.5 % LAB HEMETOLOGY METHOD 07/22/2024 5:50 PM [facility] Basophils Relative 0.6 % LAB HEMETOLOGY METHOD 07/22/2024 5:50 PM [facility] Immature Granulocytes Relative 0.6 % LAB HEMETOLOGY METHOD 07/22/2024 5:50 PM [facility] Neutrophils Absolute 5.37 1.50 - 7.00 K/mcL LAB HEMETOLOGY METHOD 07/22/2024 5:50 PM [facility] Lymphocytes Absolute 2.60 1.00 - 5.00 K/mcL LAB HEMETOLOGY METHOD 07/22/2024 5:50 PM [facility] Monocytes Absolute 0.68 0.20 - 1.00 K/mcL LAB HEMETOLOGY METHOD 07/22/2024 5:50 PM [facility] Eosinophils Absolute 0.13 0.00 - 0.50 K/mcL LAB HEMETOLOGY METHOD 07/22/2024 5:50 PM EST [facility] Basophils Absolute 0.05 0.00 - 0.20 K/mcL LAB HEMETOLOGY METHOD 07/22/2024 5:50 PM [facility] Immature Granulocytes Absolute 0.05(H) 0.00 - 0.03 K/mcL LAB HEMETOLOGY METHOD 07/22/2024 5:50 PM [facility] Blood Venous blood specimen / Unknown Venipuncture / Unknown 07/22/2024 3:54 PM EST 07/22/2024 3:54 PM EST us Carlos GOODEN LAB BLOOD ORDERABLES Final Resu lt [facility] [address] [place] [address], [place] [phone] * C-reactive protein (07/22/2024 3:54 PM EST) [facility] C-Reactive Protein <0.29 <=0.50 mg/dL LAB CHEMISTRY METHOD 07/22/2024 6:06 PM EST [facility] Blood Venous blood specimen / Unknown Venipuncture / Unknown 07/22/2024 3:54 PM EST 07/22/2024 3:54 PM EST us Carlos GOODEN LAB BLOOD ORDERABLES Final Resu lt [facility] [address] [place] [address], [place] [phone] * Iron (07/22/2024 3:54 PM EST) [facility] Iron 77 50 - 160 mcg/dL LAB CHEMISTRY METHOD 07/22/2024 6:04 PM EST [facility] Blood Venous blood specimen / Unknown Venipuncture / Unknown 07/22/2024 3:54 PM EST 07/22/2024 3:54 PM EST us Carlos GOODEN LAB BLOOD ORDERABLES Final Resu lt [facility] [address] [place] [address], [place] [phone] * Ferritin (07/22/2024 3:54 PM EST) [facility] Ferritin 274 26 - 388 ng/mL LAB CHEMISTRY METHOD 07/22/2024 6:04 PM EST [facility] Blood Venous blood specimen / Unknown Venipuncture / Unknown 07/22/2024 3:54 PM EST 07/22/2024 3:54 PM EST us Carlos GOODEN LAB BLOOD ORDERABLES Final Resu lt [facility] [address] [place] [address], * (ABNORMAL) Comprehensive metabolic panel (07/22/2024 3:54 PM EST) Sodium 136 133 - 145 mmol/L LAB CHEMISTRY METHOD 07/22/2024 6:04 PM [facility] Potassium 4.1 3.5 - 5.5 mmol/L LAB CHEMISTRY METHOD 07/22/2024 6:04 PM [facility] Chloride 101 96 - 110 mmol/L LAB CHEMISTRY METHOD 07/22/2024 6:04 PM [facility] CO2 31 21 - 32 mmol/L LAB CHEMISTRY METHOD 07/22/2024 6:04 PM [facility] Anion Gap 4 3 - 11 LAB CHEMISTRY METHOD 07/22/2024 6:04 PM [facility] Glucose 75 70 - 100 mg/dL LAB CHEMISTRY METHOD 07/22/2024 6:04 PM [facility] BUN 15 5 - 25 mg/dL LAB CHEMISTRY METHOD 07/22/2024 6:04 PM [facility] Creatinine 0.96 0.70 - 1.30 mg/dL LAB CHEMISTRY METHOD 07/22/2024 6:04 PM [facility] eGFR 105 >=60 mL/min/1. 73m2 LAB CHEMISTRY METHOD 07/22/2024 6:04 PM [facility] Comment:Calculation based on the??Chronic Kidney Disease Epidemiology Collaboration (CKD-EPI) equation refit??without adjustment for race. BUN/Creatinine Ratio 15.6 LAB CHEMISTRY METHOD 07/22/2024 6:04 PM [facility] Calcium 9.8 8.5 - 10.5 mg/dL LAB CHEMISTRY METHOD 07/22/2024 6:04 PM [facility] AST (SGOT) 31 10 - 42 unit/L LAB CHEMISTRY METHOD 07/22/2024 6:04 PM [facility] ALT (SGPT) 78(H) 10 - 60 unit/L LAB CHEMISTRY METHOD 07/22/2024 6:04 PM [facility] Alkaline Phosphatase 60 42 - 121 unit/L LAB CHEMISTRY METHOD 07/22/2024 6:04 PM [facility] Total Protein 8.4(H) 6.0 - 8.0 g/dL LAB CHEMISTRY METHOD 07/22/2024 6:04 PM [facility] Albumin 4.7 3.2 - 5.0 g/dL LAB CHEMISTRY METHOD 07/22/2024 6:04 PM [facility] Total Bilirubin 0.6 0.0 - 1.4 mg/dL LAB CHEMISTRY METHOD 07/22/2024 6:04 PM [facility] Blood Venous blood specimen / Unknown Venipuncture / Unknown 07/22/2024 3:54 PM EST 07/22/2024 3:54 PM EST us Carlos GOODEN LAB BLOOD ORDERABLES Final Resu lt [facility] [address] [place] [address], * (ABNORMAL) Lipid panel with reflex to direct LDL (04/10/2024 2:15 PM EST) Cholesterol 251(H) 0 - 200 mg/dL LAB CHEMISTRY METHOD 04/10/2024 6:51 PM [facility] Triglycerides 243(H) 0 - 150 mg/dL LAB CHEMISTRY METHOD 04/10/2024 6:51 PM [facility] HDL 49 >=40 mg/dL LAB CHEMISTRY METHOD 04/10/2024 6:51 PM [facility] LDL Calculated 153(H) 0 - 100 mg/dL LAB CHEMISTRY METHOD 04/10/2024 6:51 PM EST [facility] VLDL Cholesterol Ren 48.6 mg/dL LAB CHEMISTRY METHOD 04/10/2024 6:51 PM EST [facility] Non HDL Chol. (LDL+VLDL) 202(H) <145 mg/dL LAB CHEMISTRY METHOD 04/10/2024 6:51 PM EST [facility] Chol/HDL Ratio 5.1(H) 0.0 - 4.4 LAB CHEMISTRY METHOD 04/10/2024 6:51 PM EST [facility] Blood Venous blood specimen / Unknown Venipuncture / Unknown 04/10/2024 2:15 PM EST 04/10/2024 2:15 PM EST Emily GOODEN LAB BLOOD ORDERABLES Final Result [facility] [address] [place] [address], from Last 3 Months or Most Recently Relevant to Health Maintenance Insurance [facility] Care Teams Stock Manager Relationship Specialty Start Date End Date Qamar Chambers MD [address] [place] [address] PCP - General Internal Medicine 10/12/20
--- OUTSIDE RECORDS SUMMARY | 2024-10-03 08:29 | XMS_ITS | Encounter Summary ---
Author Organization [facility] Address [address] [place] [address] Care Team Providers Care Cotton Ball Bagger Name Role Phone Nathan Chambers MD Primary Care Provider [phone] Pedrito Pereira MD Unavailable Encounter Details Date Type Department Care Team Description 12/12/2022 Orders Only Medical Records [address] [place] [address] Joey Blanco MD Social History Tobacco Use Types Packs/Day [...] suspected to have Coronavirus/COVID-19? No / Unsure 12/14/2022 2:55 PM EDT documented as of this encounter Plan of Treatment Not on file documented as of this encounter Procedures Procedure Name Priority Date/Time Associated Diagnosis Comments OUTSIDE CT Routine 11/21/2022 documented in this encounter Results * OUTSIDE CT (11/21/2022) Joey Blanco MD RADIOLOGY documented in this encounter Visit Diagnoses Not on filedocumented in this encounter Care Teams Cotton Ball Bagger Relationship Specialty Start Date End Date Nathan Chambers MD [address] [place] [address] PCP - General Internal Medicine 10/12/20 Pedrito Pereira MD [address] [place] [address] Specialist Cardiovascular Disease 09/11/22 documented as of this encounter
--- OUTSIDE RECORDS SUMMARY | 2024-10-03 08:29 | XMS_ITS ---
Author Name [facility] Organization Unknown Encounters Encounter Type Encounter Reason Primary Diagnosis Location Date Ambulatory Vomiting Vomiting [place] 01/21/2024 Care Team Organization Name Specialty Phone Email Start Date End [facility] PCP Skip Miner [facility] 01/21/2024 08/13/2024 [facility] 01/21/2024 [facility] NO PCP Primary Care 01/21/2024
--- OUTSIDE RECORDS SUMMARY | 2024-10-03 08:29 | XMS_ITS | Encounter Summary ---
Author Organization [facility] Address [address] [place] [address] Care Team Providers Care Tobacco Packer Name Role Phone Nathan Chambers MD Primary Care Provider [phone] Jack Mancia MD Unavailable [phone] Pedrito Pereira MD Unavailable Encounter Details Date Type Department Care Team Description 09/05/2022 [facility] Medical Records [address] [place] [id number] Abstract, Provider Social History Tobacco Use Types Packs/Day Years Used Date Smoking Tobacco: Former Smokeless Tobacco: Never Comments:marijuana smoker 2- 3 [...] suspected to have Coronavirus/COVID-19? No / Unsure 09/08/2022 3:26 PM EDT documented as of this encounter Plan of Treatment Not on file documented as of this encounter Procedures Procedure Name Priority Date/Time Associated Diagnosis Comments OUTSIDE EKG Routine 09/05/2022 documented in this encounter Results * OUTSIDE EKG (09/05/2022) Provider Abstract CARDIOLOGY documented in this encounter Visit Diagnoses Not on filedocumented in this encounter Care Teams Tobacco Packer Relationship Specialty Start Date End Date Nathan Chambers MD [address] [place] [address] PCP - General Internal Medicine 10/12/20 Jack Mancia MD [address] [place] [address] [place] [address] Specialist Cardiovascular Disease 09/05/22 3 Pedrito Pereira MD [address] [place] [address] [place] [address] Specialist Cardiovascular Disease 09/11/22 documented as of this encounter
--- OUTSIDE RECORDS SUMMARY | 2024-10-03 08:30 | XMS_ITS | Encounter Summary ---
Author Organization [facility] Address [address] [place] [address] Care Team Providers Care Hand Zipper Trimmer Name Role Phone Nathan Chambers MD Primary Care Provider [phone] Pedrito Pereira MD Unavailable Encounter Details Date Type Department Care Team Description 06/25/2023 Orders Only Medical Records [address] [place] [address] Joey Blanco MD Social History Tobacco Use [...] Date/Time Associated Diagnosis Comments OUTSIDE CT Routine 06/14/2023 documented in this encounter Results * OUTSIDE CT (06/14/2023) Joey Blanco MD RADIOLOGY documented in this encounter Visit Diagnoses Not on filedocumented in this encounter Care Teams Hand Zipper Trimmer Relationship Specialty Start Date End Date Nathan Chambers MD [address] [place], [place] [phone] PCP - General Internal Medicine 10/12/20 Pedrito Pereira MD [address] [place], [place] [phone] Specialist Cardiovascular Disease 09/11/22 documented as of this encounter
--- OUTSIDE RECORDS SUMMARY | 2024-10-03 08:30 | XMS_ITS | Encounter Summary ---
Author Organization [facility] Address [address] [place] [address] Care Team Providers Care Intermediate Teacher Name Role Phone Nathan Chambers MD Primary Care Provider [phone] Pedrito Pereira MD Unavailable Encounter Details Date Type Department Care Team Description 03/09/2023 Telephone Gastroenterology - [place] [address] [phone] Carlos Mcgee PA-C [address] [address] Social History Tobacco Use Types Packs/Day Years [...] on filedocumented in this encounter Care Teams Intermediate Teacher Relationship Specialty Start Date End Date Nathan Chambers MD [address] [place], [place] [phone] PCP - General Internal Medicine 10/12/20 Pedrito Pereira MD [address] [place], [place] [phone] Specialist Cardiovascular Disease 09/11/22 documented as of this encounter
--- OUTSIDE RECORDS SUMMARY | 2024-10-03 08:30 | XMS_ITS | Clinical Summary ---
Author Organization [facility] Address [address] [place] [address] Care Team Providers Care Medical Secretary Receptionist Name Role Phone Pcp, No Primary Care Provider Unavailabl e Allergies Active Allergy Reactions Criticality Noted Date Comments Amlodipine Anaphylaxis High 09/11/2022 Medications lisinopril (PRINIVIL,ZeSTRIL) 10 MG tablet Take 10 mg by mouth. Active ondansetron (ZOFRAN-ODT) 4 MG disintegrating tabletIndications:G astroenteritis Take 1 tablet (4 mg total) by mouth 3 times daily (every 8 hours) as needed for nausea or vomiting. Place tablet on tongue to dissolve. 20 tablet 4 Active dicyclomine (BENTYL) 10 MG capsuleIndications: Gastroenteritis Take 1 capsule (10 mg total) by mouth 4 (four) times a day. 20 capsule 4 Active Social History Tobacco Use Types Packs/Day Years Used Date Smoking Tobacco: Never Assessed Sex and Gender Information Value Date Recorded Sex Assigned at Male 01/21/2024 10:43 AM EDT Legal Sex Male 8:19 AM EDT Gender Identity Male 01/21/2024 10:43 AM EDT Sexual Orientation Not on file Last Filed Vital Signs Vital Sign Reading Time Taken Comments Blood Pressure 116/83 01/21/2024 10:51 AM EDT Pulse 90 01/21/2024 10:51 AM EDT Temperature 36.7 ??C (98.1 ??F) 01/21/2024 10:51 AM E DT Respiratory Rate 16 01/21/2024 10:51 AM EDT Oxygen Saturation 98% 01/21/2024 10:51 AM EDT Inhaled Oxygen Concentration - - Weight - - Height - - Body Mass Index - - Plan of Treatment Health Maintenance Due Date Last Done Comments Hepatitis C Virus Screening 1987 HIV Screening 11/28/2000 DTaP/Tdap/Td Vaccines (1 - Tdap) 11/28/2006 Hepatitis B Vaccines (1 of 3 - 19+ 3-dose series) 11/28/2006 COVID-19 Vaccine ( - 2023-2 5 season) 2024 Influenza Vaccine 12/26/2024 02/15/2021, 03/17/2019, 02/22/2004 HPV Vaccines Aged Out No longer eligi ble based on patient's age to complete this topic Pneumococcal Vaccine: Pediatric (0-5 Years) and At-Risk Patients (6 to 49 Years) Aged Out No longer eligible b ased on patient's age to complete this topic Insurance [facility] Care Teams Medical Secretary Receptionist Relationship Specialty Start Date End Date Pcp, No PCP - General General Medicine 01/21/24
--- OUTSIDE RECORDS SUMMARY | 2024-10-03 08:30 | XMS_ITS | Clinical Summary ---
[facility] Address [address] [place] [address] Care Team Providers Care Purchasing Contracting Clerk Name Role Phone Nathan Chambers MD Primary Care Provider [phone] [phone] Allergies Active Allergy Reactions Criticality Noted Date Comments Amlodipine 11/16/2022 Medications Medication Sig Dispensed Refills Start Date End Date Status lisinopril (PRINIVIL,ZESTRIL) tablet 10 mg Take 1 tablet (10 mg total) by mouth daily. 0 Active ibuprofen 400 MG tablet Take 2 tablets (800 mg total) by mouth every 6 (six) hours as needed for pain. 0 Active Active Problems Problem Noted Date Diagnosed Date Splenomegaly 11/26/2022 Social History Tobacco Use Types Packs/Day Years Used Date Smoking Tobacco: Never Assessed Sex and Gender Information Value Date Recorded Sex Assigned at Not on file Gender Identity Not on file Sexual Orientation Not on file Job Start Date Occupation Industry Not on file Not on file Not on file Last Filed Vital Signs Vital Sign Reading Time Taken Comments Blood Pressure 118/81 06/21/2023 11:00 AM EST Pulse 76 06/21/2023 11:00 AM EST Temperature 36.3 ??C (97.3 ??F) 06/21/2023 11:[address] Respiratory Rate - - Oxygen Saturation 99% 06/21/2023 11:00 AM EST Inhaled Oxygen Concentration - - Weight 129.7 kg (286 lb) 06/21/2023 11:00 AM EST Height 182.9 cm (6') 12/19/2022 2:57 PM EDT Body Mass Index 38.79 12/19/2022 2:57 PM EDT Plan of Treatment Health Maintenance Due Date Last Done Comments Hepatitis C Screening 1987 COVID-19 Vaccine (#1) 05/31/1988 Depression Screening 1999 BMI Counseling 11/28/2005 Preventative Health Evaluation 11/28/2005 DTap / Tdap / Td (1 - Tdap) 11/28/2006 Influenza Vaccine (#1) 2024 1, 03/17/2019, 02/22/2004 Hepatitis B Vaccines Completed 08/18/1999, 04/14/1999, 03/17/1999 Pneumococcal Vaccine Aged Out No long er eligible based on patient's age to complete this topic RSV Ped < 20 months Aged Out No longe r eligible based on patient's age to complete this topic Care Teams Purchasing Contracting Clerk Relationship Specialty Start Date End Date Nathan Chambers MD PCP - General Butcher Assistant 10/18/22
--- OUTSIDE RECORDS SUMMARY | 2024-10-03 08:30 | XMS_ITS | Encounter Summary ---
Author Organization [facility] Address [address] [place] [address] Care Team Providers Care Senior Oracle Pl Sql Developer Name Role Phone Nathan Chambers MD Primary Care Provider [phone] Pedrito Pereira MD Unavailable Encounter Details Date Type Department Care Team Description 09/19/2022 Pt. Non Urgent Medical Question Cardio PVCA Diag Testing [address] [facility] [address] [place] [id number] Pedrito Pereira MD [address] [place] [id number] Social History Tobacco Use Types Packs/Day Years [...] AM EDT documented as of this encounter Miscellaneous Notes * Telephone Encounter - Miguelina Contreras RN - 09/19/2022 8:28 AM EDTFrom: Jaylen Boucher To: Shayla Pereira Sent: 09/19/2022 7:43 AM EDT Subject: Test result question Good morning Dr. Pereira, Hope you are well. I???m curious if all the blood lab results you ordered have come in yet? I know the one has come in, but I believe there were two others. Don???t mean to take up your time, just want to be sure in case I need to give a couple more samples for those tests if something went wrong. L et me know at your convenience. Thanks, Jaylen Boucher documented in this encounter Plan of Treatment Not on file documented as of this encounter Visit Diagnoses Not on filedocumented in this encounter Care Teams Senior Oracle Pl Sql Developer Relationship Specialty Start Date End Date Nathan Chambers MD [address] [place] [address] PCP - General Internal Medicine 10/12/20 Pedrito Pereira MD [address] [place] [address] Specialist Cardiovascular Disease 09/11/22 documented as of this encounter
--- OUTSIDE RECORDS SUMMARY | 2024-10-03 08:30 | XMS_ITS | Encounter Summary ---
Author Organization [facility] Address [address] [place] [address] Care Team Providers Care Cell Tuber Hand Name Role Phone Nathan Chambers MD Primary Care Provider [phone]- [phone] Perdito Pereira MD Unavailable Reason for Visit * Reason Onset Date Comments Provider Call Back 09/12/2022 Encounter Details Date Type Department Care Team Description 09/12/2022 Telephone Adult Medicine - [facility] [address] [place] [address] Nathan Chambers MD [address] [place] [address] Provider Call Back Social History Tobacco Use Types Packs/Day Years [...] encounter Miscellaneous Notes * Telephone Encounter - Rach Madrid M.A. - 09/13/2022 10:18 AM EDT Fyramila pt saw the opener yesterday and does not feel that it is related to cardiology. Pt is scheduled in [place] for a catscan tomorrow and did agree with the plan * Telephone Encounter - Nathan Chambers MD - 09/12/2022 12:46 PM EDT Difficult answers since I did not see him for this problem. It is also probably premature to decideon urgency of referral without imaging which is pending (CT). He has a follow-up in a couple weeks with another provider. This can certainly be addressed at that visit and his CT should have been done by that time. He may also need an MRI. * Telephone Encounter - Angela Lopez - 09/12/2022 10:35 AM EDT Pt called he was referred to the neurlogist when he called to make the appt they are booking out until December. He doesn't know if he could wait that long and wanted to let the drAmbika Know that documented in this encounter Plan of Treatment Not on file documented as of this encounter Visit Diagnoses Not on filedocumented in this encounter Care Teams Cell Tuber Hand Relationship Specialty Start Date End Date Nathan Chambers MD [address] [place] [address] PCP - General Internal Medicine 10/12/20 Pedrito Pereira MD [address] [place] [address] Specialist Cardiovascular Disease 09/11/22 documented as of this encounter
== END 2024-10-03 08:51 | disposition home or self-care (01) ==
LOC: HO.HSMS 08:23
PROVIDERS: PCP Pediatrics; Visit Provider Psychiatry & Neurology Neurology
DX: G61.81 Chronic inflammatory demyelinating polyneuritis (principal); G47.10 Hypersomnia, unspecified; R06.83 Snoring
CPT/HCPCS: 99214

== ENCOUNTER → 2024-10-03 08:22 | Outpatient (BNVA) | payer OTHER, SELFPAY | PROVIDERS: PCP Pediatrics; Visit Provider Psychiatry & Neurology Neurology ==

== ENCOUNTER → 2024-11-20 20:30 | Outpatient (REF) | payer OTHER, SELFPAY | LOC: HO.SL 20:30 | PROVIDERS: PCP Pediatrics; Visit Provider Psychiatry & Neurology Neurology | DX: G47.10 Hypersomnia, unspecified (principal); R06.83 Snoring; G47.00 Insomnia, unspecified | CPT/HCPCS: 95810 ==

== ENCOUNTER → 2024-11-20 21:44 | Outpatient (BNV) | payer OTHER, SELFPAY | PROVIDERS: PCP Pediatrics; Visit Provider Psychiatry & Neurology Neurology | DX: G47.10 Hypersomnia, unspecified (principal) | CPT/HCPCS: 95810 ==

== ENCOUNTER 2025-04-14 14:59 | Outpatient (AMB) | payer OTHER, SELFPAY ==
--- NOTE | 2025-04-14 15:03 | A.OFFVIS_ITS ---
Vital Signs 04/14/25 15:06 Height 6 ft Weight 293 lb 8 oz BMI 39.8 BP 120/82 Blood Pressure Location Rt brachial Position Sitting Pulse 83 Pulse Source Pulse Oximeter Pulse Oximetry (%) 98 Oxygen Delivery Method Room Air Intake Visit Reasons: F/U CONF. ok per MD Intake Note: Follow up chronic inflammatory demyelinating polyneuropathy Patient Account Analyst Required: No Accompanied by: Self / Same As Patient Allergies amlodipine Adverse Reaction (Intermediate, Verified 04/14/25 15:08) tiredness and numbness right side of face Medication List - Last Reconciled 04/14/25 by Tamiko Tavarez MD immun glob G(IgG)-gly-IgA ov50 10 % (Gammagard Liquid) 220 gm IV loading dose over 3 days followed by 100gm IV q 4 weeks intravenously; lisinopril 10 mg PO DAILY ropinirole 1-4 tabs q 4 pm orally bedtime; HPI Comments Details: 39y/o right handed male comes for follow up. He noticed mild improvement since he started on IVIG. He denies any progression or worsening.Home sleep study was inconclusive , PSG was normal He reports cramping in his feet when he lying down , tingling and better with moving EMG done 12 months ago showed improvement EMG-study done last year, there is overall improvement. The most evidence of demyelination was seen on right tibial nerve (drop in amplitude in non entrapment site). Peroneal nerves showed mildly prolonged distal latency without signs of conduction block. Left tibial and bilateral sural nerves are now normal. H reflexes appeared similar to last year, and I believe they show normal and symmetric latencies. 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 His CSF - showed albuminocytologic dissociation. His symptoms started about 8 months ago in [place] , followed by Fingers , then weakness, he has trouble climbing stairs, running jumping. Prior to all this he had pain after work - in his feet and legs. No back or neck pain. He denies any preceding GI or respiratory infection. The tingling is present throughout the day fluctuates in intensity, more in the morning. He saw his PCP and found to have high BP started on amlodipine. He had right facial weakness, difficulty whistling , spitting etc, The medication was switched to lisinopril and his face weakness resolved. He lost 40 lbs intentionally to help with his HTN control [facility] Medical History (Updated 04/14/25 @ 15:24 by Tamiko Tavarez MD) Restless legs syndrome (RLS) Perianal abscess Chronic inflammatory demyelinating polyneuropathy History of rectal abscess Neuropathy Insomnia Hypersomnia Snoring Tingling in extremities Weakness Family History Maternal Grandfather Heart disease Father Afib Mother Thyroid disease Family/Other Cancer Social History Alcohol intake: never Patient Tobacco Use Status: Never used Tobacco Substance Use Type: Marijuana Physical Exam Vital Signs: Last Vital Signs Pulse 83 04/14/25 15:06 BP 120/82 04/14/25 15:06 Pulse Ox 98 04/14/25 15:06 Oxygen Delivery Method Room Air 04/14/25 15:06 BMI result Body Mass Index 39.8 Const Orientation/consciousness: patient oriented x3 Eyes Pupils: Equal, round and reactive pupils present Neuro General: patient oriented x3, gait normal, tone normal, moves all extremities and no focal motor deficits Cranial nerves: Yes Facial sensation intact/muscles of mastication intact, Yes Equal, round and reactive pupils present, Yes Bilaterally intact EOM present, Yes Nystagmus not present, Yes Normal facial strength present, Yes Midline tongue present and Yes Symmetric palate elevation present Cognition (Neuro): normal cognition Gait exam (Neuro): Normal gait present Motor exam (neuro): 5/5 motor strength present throughout and Normal motor muscle tone present throughout Deep tendon reflexes (DTR's): Right triceps reflex intensity grade: 2+, Left triceps reflex intensity grade: 2+, Rt Biceps (C5, C6): 2+, Left biceps reflex intensity grade: 2+, Right brachioradialis reflex intensity grade: 2+, Left brachioradialis reflex intensity grade: 2+, Right patellar reflex intensity grade: 3+, Left patellar reflex intensity grade: 3+, Right ankle reflex intensity grade: 1+ and Left ankle reflex intensity grade: 1+ Coordination: [id number] test normal and [id number] test normal Assessment & Plan Assessment & Plan (1) Chronic inflammatory demyelinating polyneuropathy: Comment: distal and proximal weakness, sensory symptoms, EMG-sensorimotor demeylinating , axonal polyneuropathy CSF- albuminocytologic dissociation Code(s): G61.81 - Chronic inflammatory demyelinating polyneuritis Category: Medical (2) Hypersomnia: Code(s): G47.10 - Hypersomnia, unspecified Category: Medical (3) Snoring: Code(s): R06.83 - Snoring Category: Medical (4) Restless legs syndrome (RLS): Code(s): G25.81 - Restless legs syndrome Category: Medical Plan Change IVIG - loading dose of 2g/kg over 3 days( 116kg X2 = 232 gms) and maintenance dose of 1gm/kg q 6weeks HE WAS UNABLE TO TOLERATE SOLUMEDROL INFUSIONS - multiple side effects He is doing well on IVIG except for headaches during infusion -responded to medications. Reviewed neuromuscular specialist notes from [place] [facility] will trial him on ropiniorle 0.25 mg 1-4 tabs at bedtime Orders: Referrals Dentistry Referral F45.8 - Other somatoform disorders, R06.83 - Snoring Medications: New ropinirole 1-4 tabs q 4 pm orally bedtime; 120 tabs 0RF Coding Level of Care Code Est Pt Level 4 (43583) Complex EM visit Add On G2211 Diagnoses Chronic inflammatory demyelinating polyneuropathy G61.81 Hypersomnia G47.10 Snoring R06.83 Restless legs syndrome (RLS) G25.81
[2025-04-14 15:06] VITALS: BP 120/82; PULSE 83; O2SAT 98; BMI 39.8
== END 2025-04-14 15:31 | disposition home or self-care (01) ==
LOC: HO.HSMS 14:59
PROVIDERS: PCP Internal Medicine; Visit Provider Psychiatry & Neurology Neurology
DX: G61.81 Chronic inflammatory demyelinating polyneuritis (principal); G47.10 Hypersomnia, unspecified; R06.83 Snoring; G25.81 Restless legs syndrome
CPT/HCPCS: 99214; G2211